=== PATIENT | female | born 1960 | race Caucasian/White ===

== ENCOUNTER 2022-12-04 11:24 | Outpatient (CLI) | payer OTHER, SELFPAY ==
[2022-12-04 17:31] LABS: Alanine Aminotransferase 29 U/L (6-35); Albumin Level 4.6 g/dL (3.5-5.1); Alkaline Phosphatase 77 U/L (38-126); Anion Gap 6 mmol/L (8-16); Aspartate Amino Transferase 46 U/L (14-36); Bilirubin,Total 0.5 mg/dL (0.2-1.3); Blood Urea Nitrogen 14 mg/dL (7-17); Calcium 9.2 mg/dL (8.4-10.2); Carbon Dioxide 28 mmol/L (22-30); Chloride 104 mmol/L (98-107); Cholesterol 246 mg/dL (0-200); Estimated Glomerular Filt Rate > 60; Glucose 137 mg/dL (65-110); HDL Direct 36 mg/dL; Potassium 4.4 mmol/L (3.4-5.0); Sodium 138 mmol/L (137-145); Triglycerides 216 mg/dL (<150)
[2022-12-04 17:42] LABS: LDL Cholesterol Direct 158 mg/dL
[2022-12-04 17:51] LABS: Basophils Percent Auto 0.9 % (0.2-1.2); Eosinophils Absolute Auto 0.1 K/mm3 (0-0.3); Eosinophils Percent Auto 2.2 % (0-4.4); Hematocrit 43.1 % (37.0-47.0); Hemoglobin 13.5 g/dL (12.0-15.0); Immature Granulocyte Absolute 0.02 K/mm3 (0.00-0.031); Immature Granulocyte Percent A 0.4 % (0-0.5); Lymphocytes Absolute Auto 1.28 K/mm3 (0.9-3.2); Lymphocytes Percent Auto 27.9 % (18.3-44.2); Mean Corpuscular HGB Conc 31.3 g/dl (32-36); Mean Corpuscular Hemoglobin 27.2 pg (26-34); Mean Corpuscular Volume 86.7 fl (80-100); Mean Platelet Volume 11.1 fl (7.4-10.4); Monocytes Absolute Auto 0.4 K/mm3 (0.1-0.6); Monocytes Percent Auto 8.1 % (2.6-8.5); Neutrophils Absolute Auto 2.8 K/mm3 (1.3-6.7); Neutrophils Percent Auto 60.5 % (45.5-73.1); Platelet Count Result 222 k/mm3 (150-375); Red Blood Count 4.97 M/mm3 (4.2-5.4); Red Cell Distribution Width 15.6 % (11.5-14.5); White Blood Count 4.6 K/mm3 (4.5-10.0)
[2022-12-04 18:01] LABS: Thyroid Stimulating Hormone 0.891 uIU/mL (0.465-4.680)
[2022-12-04 18:12] LABS: Free T4 Free Thyroxine 1.03 ng/mL (0.78-2.19)
[2022-12-04 18:15] LABS: Creatinine Urine 167.1 mg/dL; Hemoglobin A1C 6.3 % (<5.7)
[2022-12-04 18:19] LABS: MALB Creatinine Ratio 6.3 mg/g (0-30); Microalbumin Urine Random 10.6 mg/L (0-16.7)
== END 2022-12-04 11:25 | disposition home or self-care (01) ==
LOC: ANHWCLAB 11:31
PROVIDERS: PCP Nurse Practitioner Adult Health; Visit Provider Nurse Practitioner Adult Health
DX: E03.9 Hypothyroidism, unspecified (principal); E78.5 Hyperlipidemia, unspecified; E11.9 Type 2 diabetes mellitus without complications; E66.01 Morbid (severe) obesity due to excess calories; I10 Essential (primary) hypertension; R80.9 Proteinuria, unspecified
CPT/HCPCS: 36415; 80053; 80061; 82043; 83036; 84439; 84443; 85025

== ENCOUNTER 2023-02-22 08:57 | Emergency (ER) | payer OTHER, SELFPAY ==
--- NOTE | ~2023-02-22 | XR_ITS ---
Clinical Indication: Arrhythmia PA and lateral views of the chest: Comparison: None Findings: Questionable 13 mm pulmonary nodule adjacent to the left heart border at the left lung base . Right lung clear. Cardiomediastinal silhouette is within normal limits. Bones and soft tissues are unremarkable. Impression: Questionable 13 mm left basilar pulmonary nodule. CT scan recommended to confirm or exclude. Reviewed, dictated and finalized at location M. L SELECTOR Impression: Questionable 13 mm left basilar pulmonary nodule. CT scan recommended to confir m or exclude.
--- NOTE | 2023-02-22 08:58 | ECG_ITS ---
Measurements Intervals [place] Rate: 92 P: 37 MO: 179 QRS: 3 QRSD: 81 T: 49 QT: 347 QTc: 431 Interpretive Statements SINUS RHYTHM MODERATE VOLTAGE CRITERIA FOR LVH, CONSIDER NORMAL VARIANT [MEETS CRITERIA IN ONE OF: R(aVL), S(V1), R(V5), R(V5/V6)+S(V1)] BORDERLINE ECG NO PREVIOUS ECG AVAILABLE FOR COMPARISON Electronically Signed On 02-22-2023 14:09:38 SHIPFITTER HELPER by Jose L Arreguin M.D.
[2023-02-22 09:03] VITALS: BP 148/98; PULSE 90; RESP 20; TEMP 36.9; O2SAT 96
[2023-02-22 09:07] VITALS: PULSE 92
[2023-02-22] MEDS: ASPIRIN 81 MG CHEWABLE TABLET 324 MG PO (09:13)
[2023-02-22 09:15] VITALS: BP 156/95; PULSE 91; RESP 18; O2SAT 96
[2023-02-22 09:22] LABS: Basophils Absolute Auto 0.1 K/mm3 (0.0-0.1); Basophils Percent Auto 1.1 % (0.2-1.2); Eosinophils Absolute Auto 0.1 K/mm3 (0-0.3); Eosinophils Percent Auto 3.2 % (0-4.4); Hematocrit 41.5 % (37.0-47.0); Hemoglobin 13.4 g/dL (12.0-15.0); Immature Granulocyte Absolute 0.01 K/mm3 (0.00-0.031); Immature Granulocyte Percent A 0.2 % (0-0.5); Lymphocytes Absolute Auto 1.26 K/mm3 (0.9-3.2); Lymphocytes Percent Auto 28.9 % (18.3-44.2); Mean Corpuscular HGB Conc 32.3 g/dl (32-36); Mean Corpuscular Hemoglobin 28.2 pg (26-34); Mean Corpuscular Volume 87.4 fl (80-100); Mean Platelet Volume 11.2 fl (7.4-10.4); Monocytes Absolute Auto 0.3 K/mm3 (0.1-0.6); Monocytes Percent Auto 6.9 % (2.6-8.5); Neutrophils Absolute Auto 2.6 K/mm3 (1.3-6.7); Neutrophils Percent Auto 59.7 % (45.5-73.1); Platelet Count Result 220 k/mm3 (150-375); Red Blood Count 4.75 M/mm3 (4.2-5.4); Red Cell Distribution Width 13.2 % (11.5-14.5); White Blood Count 4.4 K/mm3 (4.5-10.0)
[2023-02-22 09:32] LABS: Prothrombin Time 13.2 Seconds (11.1-14.7)
[2023-02-22 09:33] LABS: Partial Thromboplastin Time 26.8 SECONDS (22.3-36.8)
[2023-02-22 09:36] LABS: Alanine Aminotransferase 27 U/L (6-35); Albumin Level 4.3 g/dL (3.5-5.1); Alkaline Phosphatase 64 U/L (38-126); Anion Gap 7 mmol/L (8-16); Aspartate Amino Transferase 35 U/L (14-36); Bilirubin,Total 0.6 mg/dL (0.2-1.3); Blood Urea Nitrogen 11 mg/dL (7-17); Carbon Dioxide 23 mmol/L (22-30); Chloride 109 mmol/L (98-107); Estimated CRCL calculation 102 ml/min; Estimated Glomerular Filt Rate > 60; Glucose 143 mg/dL (65-110); Lipase 139 U/L (23-300); Potassium 4.3 mmol/L (3.4-5.0); Sodium 139 mmol/L (137-145)
--- NOTE | 2023-02-22 09:44 | ED.GENADULT ---
HPI - General Adult General Chief complaint: Arrhythmia/Palpitations Stated complaint: palpitations Time Seen by Provider: 02/22/23 09:03 Source: patient Mode of arrival: ambulatory Limitations: no limitations History of Present Illness HPI narrative: this is a 62-year-old female With PMH of HTN, hypothyroidism who presents to the ED with chief complaint of palpitations beginning this morning while at mass. Reports she was in a seated position and started to feel an irregular heartbeat. Reports that the her P became regular and started to become harder and faster. At that time she started to feel a little lightheaded but denies syncope. She also reports that her hands started to become a tingling. Denies vertigo. Denies any chest pain or associated shortness of breath. Denies vomiting, diaphoresis. Denies any recent illness, fevers, chills. She states that when she wrapped here, everything started to resolve and she is currently completely asymptomatic. Related Data Allergies Allergy/AdvReac Type Severity Reaction Status Date / Time No Known Allergies Allergy Verified 02/22/23 09:07 Review of Systems Review of Systems: All systems as dictated in HPI Exam Narrative: GENERAL: Well-appearing, well-nourished, and in no acute distress. HEAD: Normocephalic, atraumatic. EYES: PERRLA and EOMI. ENT: Nares clear, no rhinorrhea or epistaxis. Mucous membranes moist. Oropharynx without tonsillar hypertrophy exudate or other lesions. NECK: Supple. No adenopathy or masses. CHEST: No respiratory distress. Clear to auscultation. No wheezes rales or rhonchi HEART: Regular rate and rhythm. No murmur heard. Normal peripheral pulses. ABDOMEN: Soft, nontender, nondistended, normal active bowel sounds. MSK: Normal range of motion. No edema. SKIN: Warm, dry, no rash. NEURO: Alert and oriented x3. No focal deficits. PSYCH: Normal mood and affect. Course Course Emergency Course: re-evaluation 1047: No further symptomatic episodes. has continued to be asymptomatic during her entire visit. Feels comfortable going home and follow-up with PCP. Vital Signs Vital signs: Vital Signs Temperature 98.5 F 02/22/23 09:03 Pulse Rate 90 02/22/23 09:03 Respiratory Rate 20 02/22/23 09:03 Blood Pressure 148/98 H 02/22/23 09:03 Pulse Oximetry 96 02/22/23 09:03 Oxygen Delivery Room Air 02/22/23 09:03 Temperature 98.5 F 02/22/23 09:03 Pulse Rate 86 02/22/23 09:45 Respiratory Rate 18 02/22/23 09:45 Blood Pressure 140/93 H 02/22/23 09:45 Pulse Oximetry 97 02/22/23 09:45 Oxygen Delivery Room Air 02/22/23 09:03 Medical Decision Making MDM Narrative Medical decision making narrative: This is a 62 female who presents to the ED with chief complaint of palpitations beginning this morning. no chest pain or respiratory distress. Vitals are normal. Exam is benign. Lab work is grossly unremarkable. Negative initial troponin. EKG shows sinus rhythm. Chest x-ray shows no acute abnormalities, however does show a 13 mm nodule in the left lung base. The patient has remained completely asymptomatic since arrival in the ER. She feels ready to go home. I discussed the findings of the chest x-ray with her. No dysrhythmias seen on the monitor. We also discussed that she may need a Holter monitor, instructed follow-up with PCP. She feels comfortable with this plan. Pt will be discharged in stable condition. Return precautions given and supportive measures discussed. Pt is understanding and agreeable with plan for discharge and follow-up with PCP. Differential Diagnosis Differential Diagnosis: atrial fibrillation, arrhythmia, dysrhythmia, ACS, anxiety, orthostatic hypotension Vital Signs Vital Signs: Vital Signs Temperature 98.5 F 02/22/23 09:03 Pulse Rate 90 02/22/23 09:03 Respiratory Rate 20 02/22/23 09:03 Blood Pressure 148/98 H 02/22/23 09:03 Pulse Oximetry 96
[2023-02-22 09:45] VITALS: BP 140/93; PULSE 86; RESP 18; O2SAT 97
[2023-02-22 09:54] LABS: Troponin I < 0.012 ng/mL (0.000-0.034)
[2023-02-22 10:24] LABS: Appearance Urine Clear (Clear); Bacteria Urine None Seen /hpf; Bilirubin Urine Negative (Negative); Blood Urine Negative (Negative); Color Urine Yellow (Yellow); Glucose Urine UA Negative (Negative); Ketones Urine Negative (Negative); Leukocyte Esterase Ur 1+ LEU/UL (Negative); Need Manual Microscopic Reviewed; Nitrate Urine Negative (Negative); Non Pathogenic Casts 0-2; Protein Urine Negative (Negative); RBC Urine 0-2 /hpf (0-2); Specific Grav Ur 1.013 (1.001-1.035); Squamous Epithelial Cell Urine None seen /hpf (Few); Urobilinogen Urine 0.2 mg/dL (<2.0); WBC Urine 0-5 /hpf
[2023-02-22 10:27] LABS: Add Urine Microscopic? YES
== END 2023-02-22 11:04 | disposition home or self-care (01) ==
PROVIDERS: Emergency Medicine; Emergency Provider Physician Assistant; PCP Family Medicine
DX: R00.2 Palpitations (principal); I10 Essential (primary) hypertension; E03.9 Hypothyroidism, unspecified; R91.1 Solitary pulmonary nodule
CPT/HCPCS: 36415; 71046; 80053; 81001; 83690; 84484; 85025; 85610; 85730; 93005; 99284; A9270

== ENCOUNTER → 2023-03-08 11:01 | Outpatient (CLI) | payer OTHER, SELFPAY ==
--- NOTE | ~2023-03-08 | CT_ITS ---
EXAMINATION: CT diagnostic chest w con DATE: 03/08/2023 11:35 INDICATION: Lung nodule TECHNIQUE: Transaxial computed tomographic images of the chest were obtained after the administration of 75 cc of Omnipaque 350 intravenous contrast. The dose-length product (DLP) was 632.29 mGy-cm. Ite rative reconstruction was used. COMPARISON: Chest radiograph, 02/22/2023 FINDINGS: The lungs are free of acute opacities. No pleural effusion or pneumothorax. No suspicious C T correlate is identified for the finding in question on the comparison chest radiograph. No patholog ically enlarged thoracic lymph nodes are identified. The heart size is normal. There is a partially i ralph 7 cm cyst of the left kidney. There is mild thoracic spondylosis. IMPRESSION: 1. No suspicious CT correlate for the chest radiographic finding in question. No acute cardiopulmonar y abnormality. Reviewed, dictated and finalized at location B. AVER SET UP OPERATOR IMPRESSION: 1. No suspicious CT correlate for the chest radiographic finding in question. N o acute cardiopulmonary abnormality.
[2023-03-08 11:26] LABS: Estimated Glomerular Filt Rate > 60
== END ==
PROVIDERS: PCP Nurse Practitioner Adult Health; Visit Provider Nurse Practitioner Adult Health
DX: R91.1 Solitary pulmonary nodule (principal)
CPT/HCPCS: 71260; Q9967

== ENCOUNTER 2023-06-04 09:17 | Outpatient (CLI) | payer OTHER, SELFPAY ==
[2023-06-04 12:37] LABS: Basophils Absolute Auto 0.1 K/mm3 (0.0-0.1); Eosinophils Absolute Auto 0.2 K/mm3 (0-0.3); Eosinophils Percent Auto 2.9 % (0-4.4); Hematocrit 38.5 % (37.0-47.0); Hemoglobin 11.8 g/dL (12.0-15.0); Immature Granulocyte Absolute 0.02 K/mm3 (0.00-0.031); Immature Granulocyte Percent A 0.4 % (0-0.5); Lymphocytes Absolute Auto 1.38 K/mm3 (0.9-3.2); Lymphocytes Percent Auto 26.3 % (18.3-44.2); Mean Corpuscular HGB Conc 30.6 g/dl (32-36); Mean Corpuscular Hemoglobin 27.1 pg (26-34); Mean Corpuscular Volume 88.3 fl (80-100); Mean Platelet Volume 11.5 fl (7.4-10.4); Monocytes Absolute Auto 0.4 K/mm3 (0.1-0.6); Monocytes Percent Auto 6.7 % (2.6-8.5); Neutrophils Absolute Auto 3.3 K/mm3 (1.3-6.7); Neutrophils Percent Auto 62.7 % (45.5-73.1); Platelet Count Result 228 k/mm3 (150-375); Red Blood Count 4.36 M/mm3 (4.2-5.4); Red Cell Distribution Width 13.1 % (11.5-14.5); White Blood Count 5.3 K/mm3 (4.5-10.0)
[2023-06-04 12:40] LABS: Alanine Aminotransferase 22 U/L (6-35); Albumin Level 4.1 g/dL (3.5-5.1); Alkaline Phosphatase 68 U/L (38-126); Anion Gap 6 mmol/L (4-12); Aspartate Amino Transferase 34 U/L (14-36); Bilirubin,Total 0.4 mg/dL (0.2-1.3); Blood Urea Nitrogen 11 mg/dL (7-17); Calcium 9.5 mg/dL (8.4-10.2); Carbon Dioxide 27 mmol/L (22-30); Chloride 107 mmol/L (98-107); Cholesterol 182 mg/dL (0-200); Estimated Glomerular Filt Rate > 60; Glucose 123 mg/dL (65-110); HDL Direct 37 mg/dL; Potassium 4.1 mmol/L (3.4-5.0); Sodium 140 mmol/L (137-145); Triglycerides 123 mg/dL (<150)
[2023-06-04 12:51] LABS: LDL Cholesterol Direct 124 mg/dL
[2023-06-04 13:03] LABS: Free T4 Free Thyroxine 0.84 ng/mL (0.78-2.19)
[2023-06-04 13:11] LABS: Total Triiodothyronine (T3) 0.97 NG/ML (0.97-1.69)
[2023-06-04 13:15] LABS: Hemoglobin A1C 6.1 % (<5.7)
== END 2023-06-04 09:18 | disposition home or self-care (01) ==
PROVIDERS: PCP Nurse Practitioner Adult Health; Visit Provider Registered Nurse
DX: E11.9 Type 2 diabetes mellitus without complications (principal); E03.9 Hypothyroidism, unspecified; I10 Essential (primary) hypertension
CPT/HCPCS: 36415; 80053; 80061; 83036; 84439; 84443; 84480; 85025

== ENCOUNTER 2023-07-17 11:43 | Emergency (ER) | payer OTHER, SELFPAY ==
--- NOTE | ~2023-07-17 | XR_ITS ---
EXAMINATION: XR finger 4th LT min 2V DATE: 07/17/2023 12:08 INDICATION: Left hand fourth digit injury. TECHNIQUE: 3 views of left hand fourth digit were obtained. COMPARISON: None. FINDINGS: Bone alignment is normal. No fracture. There is mild osteoarthritis of fourth proximal and distal interphalangeal joints. IMPRESSION: 1. No fracture. Reviewed, dictated and finalized at location A. IMPRESSION: 1. No fracture.
[2023-07-17 11:44] VITALS: BP 161/94; PULSE 89; RESP 16; TEMP 36.6; O2SAT 100
--- NOTE | 2023-07-17 11:58 | ED.UPPEXIN ---
HPI - Extremity Injury (Upper) General Chief Complaint: Extremity Injury, Upper Stated Complaint: L 4th digit pain/injury Time Seen by Provider: 07/17/23 11:58 History of Present Illness HPI narrative: 8-year-old female presents the emergency room for evaluation of a finger injury that occurred just prior to arrival. Patient states she was moving concrete, when a brick crushed on her ring finger on her left hand. Related Data Home Medications Medication Instructions Recorded Confirmed levothyroxine PO DAILY 01/17/23 loratadine 10 mg tablet (Claritin) 10 mg PO DAILY 01/17/23 losartan PO DAILY 01/17/23 naproxen sodium 220 mg tablet 220 mg PO BID PRN 01/17/23 (Aleve) venlafaxine 225 mg tablet,extended 225 mg PO DAILY 01/17/23 release 24 hr Allergies Allergy/AdvReac Type Severity Reaction Status Date / Time No Known Allergies Allergy Unverified 03/18/23 10:03 Review of Systems Review of Systems: Review of systems unremarkable except for noted in the HPI PMFSH Past Medical History Medical History BMI greater than 40 Left knee DJD Uterine prolapse Surgical History Surgical History H/O dilation and curettage 1988, 1996 History of section (~2000) History of tonsillectomy (~1968) Hx of cholecystectomy (~1987) Family History Family History Unknown Asthma Hypertension Depression Lung disease Heart disease Neuropathy Kidney disorder Diabetes mellitus Arthritis Hyperlipidemia Social History Social History Smoking status: Never smoker Exam Narrative: GENERAL: Well-appearing, well-nourished, no physical limitations, and in no acute distress. HEAD: Normocephalic, atraumatic. EYES: Conjunctivae normal, PERRLA and EOMI. CHEST: Clear to auscultation. No respiratory distress. No wheezes rales or rhonchi. HEART: Regular rate and rhythm. No murmur heard. Normal peripheral pulses. EXTREMITIES: left hand: +TTP to distal phalanx. No bony abnormality. No ecchymosis. Neurovascular is intact distally SKIN: Warm, dry, no rash. No noted wounds NEURO: No focal deficits. Alert and oriented x3. MAEW. CN's II-XI intact bilaterally, normal gait PSYCH: Cooperative. Normal mood and affect. Course Vital Signs Vital signs: Vital Signs Temperature 36.6 C 07/17/23 11:44 Pulse Rate 89 07/17/23 11:44 Respiratory Rate 16 07/17/23 11:44 Blood Pressure 161/94 H 07/17/23 11:44 Pulse Oximetry 100 07/17/23 11:44 Oxygen Delivery Room Air 07/17/23 11:44 Temperature 36.6 C 07/17/23 11:44 Pulse Rate 89 07/17/23 11:44 Respiratory Rate 16 07/17/23 11:44 Blood Pressure 161/94 H 07/17/23 11:44 Pulse Oximetry 100 07/17/23 11:44 Oxygen Delivery Room Air 07/17/23 11:44 Discharge Plan Discharge Clinical Impression: Contusion of finger of left hand Patient Disposition: Home, Self-Care Condition: Stable Instructions: Antibiotic Form Prescriptions: No Action venlafaxine 225 mg tablet extended release 24hr 225 mg PO DAILY naproxen sodium [Aleve] 220 mg tablet 220 mg PO BID PRN loratadine [Claritin] 10 mg tablet 10 mg PO DAILY losartan PO DAILY levothyroxine PO DAILY Follow-up/Referrals: Mariano,Jose L Cooper APRN [Non-Staff] - Time of Disposition: 13:17
== END 2023-07-17 13:28 | disposition home or self-care (01) ==
PROVIDERS: Emergency Provider Nurse Practitioner Family
DX: S60.042A Contusion of left ring finger without damage to nail, initial encounter (principal); M17.12 Unilateral primary osteoarthritis, left knee; Z90.49 Acquired absence of other specified parts of digestive tract; W23.0XXA Caught, crushed, jammed, or pinched between moving objects, initial encounter
CPT/HCPCS: 73140; 99283

== ENCOUNTER 2023-10-08 16:01 | Outpatient (CLI) | payer OTHER, SELFPAY ==
--- NOTE | ~2023-10-08 | XR_ITS ---
EXAMINATION: XR lumbar spine 2-3V, XR sacrum coccyx min 2V DATE: 10/08/2023 16:43 INDICATION: Back pain TECHNIQUE: 1. Anteroposterior and lateral views of the lumbar spine, and cone-down lateral view of the lumbosacr al junction were obtained. 2. 3 views of the sacrum and coccyx were obtained. COMPARISON: None. FINDINGS: Lumbar spine: 4 degrees lumbar dextrocurvature. Sagittal alignment is normal. Vertebral body heights are normal. Mo derate disc height loss at L5-S1. Bilateral lumbar facet osteoarthritis, mild at the upper lumbar spi ne progressing to severe at the lower lumbar spine. Sacrum and coccyx: Normal alignment of the pelvis. Sacral arches are intact. No fractures identified. Mild bilateral hip and sacroiliac osteoarthritis. Mild osteitis pubis. 1.5 cm sclerotic lesion at the left anterior dino ac spine which could represent a large bone island although differential includes metastatic disease. IMPRESSION: 1. Lower lumbar predominant spondylosis with moderate to severe lower lumbar facet osteoarthritis and moderate disc height loss at L5-S1. 2. Mild bilateral hip and sacroiliac osteoarthritis. No acute osseous abnormality. 3. 1.5 cm sclerotic lesion at the left anterior iliac spine with differential including bone island o r metastatic disease in the appropriate clinical setting. Consider bone scan for further evaluation p articularly if there is known history of prior malignancy. Reviewed, dictated and finalized at location A. IMPRESSION: 1. Lower lumbar predominant spondylosis with moderate to severe lower lumbar fa cet osteoarthritis and moderate disc height loss at L5-S1. 2. Mild bilateral hip and sacroiliac osteoarthritis. No acute osseous abnormali ty. 3. 1.5 cm sclerotic lesion at the left anterior iliac spine with differential i ncluding bone island or metastatic disease in the appropriate clinical setting. Consider bone scan for further evaluation particularly if there is known histo ry of prior malignancy.
== END 2023-10-08 16:02 | disposition home or self-care (01) ==
PROVIDERS: PCP Family Medicine; Visit Provider Registered Nurse
DX: M47.896 Other spondylosis, lumbar region (principal); M16.0 Bilateral primary osteoarthritis of hip; M53.3 Sacrococcygeal disorders, not elsewhere classified
CPT/HCPCS: 72100; 72220

== ENCOUNTER 2023-10-14 14:09 | Emergency (ER) | payer OTHER, SELFPAY ==
[2023-10-14 14:17] VITALS: BP 131/58; PULSE 99; RESP 16; TEMP 37; O2SAT 97
[2023-10-14] MEDS: DACRIOSE EYE IRRIGATION 118 ML BOTTLE 10 ML RIGHT EYE (14:34)
[2023-10-14] MEDS: FLUORESCEIN SOD 1 MG/STRIP RIGHT EYE (14:34)
[2023-10-14] MEDS: TETRACAINE HCL 0.5% OPHTH SOLN 4 ML BTL 1 DROP RIGHT EYE (14:34)
--- NOTE | 2023-10-14 14:47 | ED.EYEPROB ---
HPI - Eye Problem General Chief complaint: Eye Problems Stated complaint: right eye irritated Time Seen by Provider: 10/14/23 14:32 Source: patient, family () and RN notes reviewed Mode of arrival: ambulatory Limitations: no limitations History of Present Illness HPI Narrative: Patient presents today complaining right eye irritation. She was gardening outside today and believes she got some dirt in her eye around 10:00 a.m. today. She does report some blurred vision as well. Wears glasses. She used some [id number] eyedrops with only mild relief. States she could not get an eye doctor appointment until tomorrow. Related Data Home Medications Medication Instructions Recorded Confirmed azelastine 137 mcg (0.1 %) nasal 137 mcg intranasal DIRECTED 10/14/23 10/14/23 spray levothyroxine 75 mcg tablet 75 mcg DIRECTED 10/14/23 10/14/23 losartan 50 mg tablet 50 mg DIRECTED 10/14/23 10/14/23 pregabalin 100 mg capsule 100 mg PO DIRECTED 10/14/23 10/14/23 venlafaxine 150 mg 150 mg PO DIRECTED 10/14/23 10/14/23 capsule,extended release 24 hr venlafaxine 75 mg capsule,extended 75 mg PO DIRECTED 10/14/23 10/14/23 release 24 hr Allergies Allergy/AdvReac Type Severity Reaction Status Date / Time No Known Allergies Allergy Unverified 10/10/23 07:46 Review of Systems Review of Systems: CONSTITUTIONAL: Denies body aches, fever, chills, or sweats. EYES: Denies visual changes, redness, or discharge.+ right eye irritation in blurriness ENT: Denies rhinorrhea, congestion, sore throat, or otalgia. CARDIOVASCULAR: Denies chest pain, palpitations, or edema. RESPIRATORY: Denies cough or dyspnea. GASTROINTESTINAL: Denies abdominal pain, nausea, vomiting, or diarrhea. GENITOURINARY: Denies dysuria or hematuria. SKIN: Denies rash, itching, or wounds. MUSCULOSKELETAL: Denies back pain, joint pain, or myalgia. NEUROLOGIC: Denies headache, numbness, tingling, or weakness. PSYCH: Denies depression or anxiety. [facility] Past Medical History Medical History BMI greater than 40 Left knee DJD Uterine prolapse Surgical History Surgical History H/O dilation and curettage 1988, 1996 History of section (~2000) History of tonsillectomy (~1968) Hx of cholecystectomy (~1987) Family History Family History Unknown Asthma Hypertension Depression Lung disease Heart disease Neuropathy Kidney disorder Diabetes mellitus Arthritis Hyperlipidemia Social History Social History Smoking status: Never smoker Comments At time of signature, I have reviewed and agree with nursing past medical, surgical, social and family history unless otherwise noted. Please see nursing chart for further information. There is no relevant family history pertinent to the presenting complaint Exam Narrative: GENERAL: Well-appearing, well-nourished, and in no acute distress. HEAD: Normocephalic, atraumatic. EYES: EOMI. PERRL. Left eye normal. Right eye: 2 corneal abrasions noted with fluorescein uptake. See procedure note ENT: Mucous membranes pink and moist. NECK: Normal AROM. CHEST: No respiratory distress. EXTREMITIES: Normal range of motion. No edema. SKIN: Warm, dry, no rash. Capillary refill normal. Normal skin turgor. NEURO: No focal deficits. Alert and oriented x3. Gait steady. PSYCH: Normal affect. No signs of depression or anxiety. Course Course Level of Care: Express Care Visit Vital Signs Vital signs: Vital Signs Temperature 98.6 F 10/14/23 14:17 Pulse Rate 99 10/14/23 14:17 Respiratory Rate 16 10/14/23 14:17 Blood Pressure 131/58 L 10/14/23 14:17 Pulse Oximetry 97 10/14/23 14:17 Oxygen Delivery Room Air
== END 2023-10-14 15:05 | disposition home or self-care (01) ==
PROVIDERS: Emergency Provider Nurse Practitioner
DX: S05.01XA Injury of conjunctiva and corneal abrasion without foreign body, right eye, initial encounter (principal); X58.XXXA Exposure to other specified factors, initial encounter; M17.12 Unilateral primary osteoarthritis, left knee
CPT/HCPCS: 99213; A9270; G0463

== ENCOUNTER 2023-10-22 12:41 | Outpatient (CLI) | payer OTHER, SELFPAY ==
--- NOTE | ~2023-10-22 | CT_ITS ---
EXAMINATION: CT abdomen pelvis wo con DATE: 10/22/2023 13:23 INDICATION: Hip pain. TECHNIQUE: Computed tomography (CT) of the abdomen and pelvis was performed without intravenous contr ast. Automated exposure control and iterative reconstruction technique were employed. The dose-length product was 1523.19 mGy-cm. COMPARISON: None. FINDINGS: The visualized portions of the lung bases demonstrate minimal atelectasis. No pleural effus ion. The heart size is normal. No pericardial effusion. The liver, spleen, and pancreas are normal. T he gallbladder is absent. The adrenal glands and right kidney are normal. There is a 7.2 cm cyst in l eft kidney. There is an umbilical hernia containing fat. There are no dilated loops of bowel. The dominic endix is normal. There are no pathologically enlarged lymph nodes. There is no free intraperitoneal f luid. There is severe lower lumbar spondylosis. There is mild osteoarthritis of the hips. There are b enign bone islands in left ilium. IMPRESSION: 1. Mild osteoarthritis of the hips. 2. Umbilical hernia containing fat. Reviewed, dictated and finalized at location A.
== END 2023-10-22 12:42 | disposition home or self-care (01) ==
LOC: ANHIMG 12:48
PROVIDERS: PCP Registered Nurse; Visit Provider Registered Nurse
DX: M16.0 Bilateral primary osteoarthritis of hip (principal); K44.9 Diaphragmatic hernia without obstruction or gangrene
CPT/HCPCS: 74176

== ENCOUNTER 2024-02-03 09:47 | Outpatient (CLI) | payer OTHER, SELFPAY ==
[2024-02-03 10:12] LABS: Basophils Absolute Auto 0.1 K/mm3 (0.0-0.1); Eosinophils Absolute Auto 0.2 K/mm3 (0-0.3); Eosinophils Percent Auto 4.6 % (0-4.4); Hematocrit 42.2 % (37.0-47.0); Hemoglobin 13.5 g/dL (12.0-15.0); Immature Granulocyte Absolute 0.02 K/mm3 (0.00-0.031); Immature Granulocyte Percent A 0.4 % (0-0.5); Lymphocytes Absolute Auto 1.25 K/mm3 (0.9-3.2); Lymphocytes Percent Auto 25.3 % (18.3-44.2); Mean Corpuscular Hemoglobin 27.8 pg (26-34); Mean Platelet Volume 10.1 fl (7.4-10.4); Monocytes Absolute Auto 0.3 K/mm3 (0.1-0.6); Monocytes Percent Auto 5.7 % (2.6-8.5); Neutrophils Absolute Auto 3.1 K/mm3 (1.3-6.7); Platelet Count Result 247 k/mm3 (150-375); Red Blood Count 4.85 M/mm3 (4.2-5.4); Red Cell Distribution Width 14.4 % (11.5-14.5)
[2024-02-03 10:26] LABS: Alanine Aminotransferase 16 U/L (6-35); Albumin Level 4.3 g/dL (3.5-5.1); Alkaline Phosphatase 120 U/L (38-126); Anion Gap 6 mmol/L (4-12); Aspartate Amino Transferase 25 U/L (14-36); Bilirubin,Total 0.5 mg/dL (0.2-1.3); Blood Urea Nitrogen 10 mg/dL (7-17); Calcium 9.2 mg/dL (8.4-10.2); Carbon Dioxide 30 mmol/L (22-30); Chloride 106 mmol/L (98-107); Cholesterol 211 mg/dL (0-200); Estimated Glomerular Filt Rate > 60; Glucose 145 mg/dL (65-110); HDL Direct 36 mg/dL; Potassium 4.2 mmol/L (3.4-5.0); Sodium 142 mmol/L (137-145); Triglycerides 214 mg/dL (<150)
[2024-02-03 10:37] LABS: LDL Cholesterol Direct 136 mg/dL
[2024-02-03 10:40] LABS: Creatinine Urine 222.3 mg/dL
[2024-02-03 10:41] LABS: MALB Creatinine Ratio 15.7 mg/g (0-30); Microalbumin Urine Random 34.9 mg/L (0-16.7)
[2024-02-03 10:55] LABS: Thyroid Stimulating Hormone 0.568 uIU/mL (0.465-4.680); Total Triiodothyronine (T3) 1.03 NG/ML (0.97-1.69)
[2024-02-03 10:57] LABS: Free T4 Free Thyroxine 1.11 ng/mL (0.78-2.19)
[2024-02-03 11:30] LABS: Hepatitis C Virus Antibody Negative (Negative)
== END 2024-02-03 09:48 | disposition home or self-care (01) ==
PROVIDERS: PCP Registered Nurse; Visit Provider Registered Nurse
DX: Z11.59 Encounter for screening for other viral diseases (principal); E11.9 Type 2 diabetes mellitus without complications; E78.5 Hyperlipidemia, unspecified; E03.9 Hypothyroidism, unspecified
CPT/HCPCS: 36415; 80053; 80061; 82043; 83036; 84439; 84443; 84480; 85025; 86803

== ENCOUNTER 2024-02-14 15:45 | Outpatient (CLI) | payer OTHER, SELFPAY ==
--- NOTE | ~2024-02-14 | MR_ITS ---
EXAMINATION: MR lumbar spine wo con DATE: 02/14/2024 16:25 INDICATION: Low back pain. TECHNIQUE: Magnetic resonance imaging (MRI) of the lumbar spine was performed without intravenous con trast. Sequences included sagittal T2-weighted FSE, sagittal T2-weighted FS FSE, sagittal T1-weighted FSE, and axial T2-weighted FSE. COMPARISON: Lumbar spine radiographs 10/08/2023 FINDINGS: There is 3 mm retrolisthesis of L5 on S1. There are hemangiomas in T11 and L1 vertebral bod ies. There is severely decreased disc height at L5-S1. The distal spinal cord signal intensity is nor mal. The conus medullaris is at L1. There is a 6.8 cm cyst in left kidney. The following disc levels are specifically discussed: L1-L2: There is a central protrusion. There is mild bilateral facet joint osteoarthritis. There is no neural foraminal stenosis. There is mild central canal stenosis. L2-L3: The disc does not extend beyond the endplate margin. There is severe bilateral facet joint ost eoarthritis. There is no neural foraminal stenosis. There is no central canal stenosis. L3-L4: The disc does not extend beyond the endplate margin. There is severe bilateral facet joint ost eoarthritis. There is no neural foraminal stenosis. There is no central canal stenosis. L4-L5: There is a left foraminal protrusion. There is severe bilateral facet joint osteoarthritis. Th ere is no neural foraminal stenosis. There is no central canal stenosis. L5-S1: The disc is bulging and has an annular fissure. There is severe bilateral facet joint osteoart hritis. There is mild bilateral neural foraminal stenosis. There is mild central canal stenosis. IMPRESSION: 1. Severe lower lumbar spondylosis. Reviewed, dictated and finalized at location A. WARE APPLICATIONS DESIGNER
--- NOTE | ~2024-02-14 | XR_ITS ---
XR hip RT min 2V 02/14/2024 16:31 Indication: Right hip pain Procedure: 2 views right hip Comparison: 09/09/2022 Findings: Mild osteoarthritis of the right hip. No fracture, subluxation or dislocation. There is ost eitis pubis. Surrounding osseous structures and soft tissues are unremarkable. Impression: 1: Mild osteoarthritis of the right hip. Reviewed, dictated and finalized at location B. OFFICER Impression: 1: Mild osteoarthritis of the right hip.
== END 2024-02-14 15:46 | disposition home or self-care (01) ==
PROVIDERS: PCP Registered Nurse
DX: M16.11 Unilateral primary osteoarthritis, right hip (principal); M47.896 Other spondylosis, lumbar region
CPT/HCPCS: 72148; 73502

== ENCOUNTER 2024-11-03 08:37 | Outpatient (CLI) | payer OTHER, SELFPAY ==
--- OUTSIDE RECORDS SUMMARY | 2023-08-24 16:30 | XMS_ITS ---
Author Organization [facility] [employer] ([address]) Address [address] [facility] [address] [place] [address] Care Team Providers Care Cabin Furnishings Installer Name Role Phone Jerrod Cameron MD Primary Care Provider Unavail able Alton Ramirez Unavailable [phone] ZZ-Migration, Provider Unavailable Unavailab REASON FOR VISIT [facility] Conversion Encounter Medications Medication SIG (Take, Route, Frequency, Duration) Notes Start Date End Date Status Losartan Potassium 50 MG 1 tab(s) orally once a day Active Effexor XR 75 MG 1 cap(s) orally 3x daily Active Aleve 220 MG 1 tab(s) orally ever y 12 hours Active Pregabalin 100 MG 1 cap(s) orally 2 times a day only takes once a day Active Levothyroxine Sodium 75 MCG 1 tab(s) orally once a day Active Fexofenadine HCl 180 MG 1 tab(s) orally Daily; Duration: 30 days Active Fluticasone Propionate 50 MCG/ACT 2 spray(s) in each nostril twice a day; Duration: 30 days Active Azelastine HCl 137 MCG/SPRAY 2 spray(s) intranasally 2 times a day; Duration: 90 days Active NASAL WASHES N/A DIRECTED INTRANASALLY NEEDED; Duration: 30 DAYS *Please review for potential replacement for e-prescription and drug interaction check* Active EpiPen 2-Scott 0.3 MG/0.3ML as directed intramuscularly once; Duration: 30 days Active Encounters Encounter Location Date Provider Diagnosis ERNESTINA Ni [address] [place] [address] [place] [address] 08/24/2023 Provider ZZ-Migration Allergic rhinitis due to pollen J30.1 and Bee allergy status Z91.030 Assessments Encounter Date Diagnosis (ICD Code) Assessment Notes Treatment Notes Treatment Clinical Notes Section Notes 08/24/2023 Allergic rhinitis due to pollen (ICD-10 - J30.1) 08/24/2023 Bee allergy status (ICD-10 - Z91.030) Plan Of Treatment Medication Medication Name Sig Start Date Stop Date Notes Fexofenadine HCl 180 MG 1 tab(s) orally Daily; Duration: 30 days Fluticasone Propionate 50 MCG/ACT 2 spray(s) in each nostril twice a day; Duration: 30 days Azelastine HCl 137 MCG/SPRAY 2 spray(s) intranasally 2 times a day; Duration: 90 days NASAL WASHES N/A DIRECTED INTRANAS ALLY NEEDED; Duration: 30 DAYS *Please review for potential replacement for e-prescription and drug interaction check* EpiPen 2-Scott 0.3 MG/0.3ML as directed intramuscularly once; Duration: 30 days Progress Notes * Minna ORTIZB: 3 (63 yo F)Acc No.[id number]:08/24/2023 Patient: Imelda CHOWDHURY Provider: Lexie Maharaj :1960 A ge:62 Y S ex:Female Date:08/24/2023 Address:[address] [place], [place] [id number] Pcp:Jerrod Cameron MD Subjective: * Chief Complaints: * 1 . [facility] Conversion Encounter. * Medical History: * Medications: T aking Effexor XR 75 MG Capsule Extended Release 24 Hour 1 cap(s) orally 3x daily , Taking Aleve 220 MG Tablet 1 tab(s) orally every 12 hours , Taking Pregabalin 100 MG Capsule 1 cap(s) orally 2 times a day , Notes to Pharmacist: only takes once a day, Taking Levothyroxine Sodium 75 MCG Tablet 1 tab(s) orally once a day , Taking Losartan Potassium 50 MG Tablet 1 tab(s) orally once a day , Taking Fexofenadine HCl 180 MG Tablet 1 tab(s) orally Daily , Taking Fluticasone Propionate 50 MCG/ACT Suspension 2 spray(s) in each nostril BID , Taking Azelastine HCl 137 MCG/SPRAY Solution 2 spray(s) intranasally 2 times a day , Taking EpiPen 2-Scott 0.3 MG/0.3ML Solution Auto-injector as directed intramuscularly once Objective: * Vitals: Assessment: * Assessment: 1. A llergic rhinitis due to pollen - J30.1 (Primary) 2 . B ee allergy status - Z91.030 Plan: * Treatment: 2. B ee allergy status Continue EpiPen 2-Scott Solution Auto-injector, 0.3 MG/0.3ML, as directed, intramuscularly, once, 30 days, 1, Refills 0. * Billing Information: * Visit Code: * Procedure Codes: * Electronic signature of Ros CHEN-Migration on 11/03/2024 at 08:46 AM CDT Sign off status: Pending * Provider: Lexie guillen Migration Date: 0 08/24/2023 Generated for Erica ybarra/Benson/Teresita on: 0 11/03/2024 08:46 AM CDT
--- NOTE | ~2024-11-03 | XR_ITS ---
EXAMINATION: XR chest 2V 11/03/2024 10:18 INDICATION: Cough PROCEDURE: 2 view chest COMPARISON: 02/22/2023 FINDINGS: The lungs are clear. The cardiomediastinal silhouette is within normal limits. There are no pleural effusions. There is no pneumothorax suspected. IMPRESSION: 1: NO ACUTE CARDIOPULMONARY DISEASE. Reviewed, dictated and finalized at location O.
--- NOTE | ~2024-11-03 | XR_ITS ---
EXAMINATION: XR wrist LT min 3V, 11/03/2024 10:10 CDT HISTORY: Cough and pain unspecified COMPARISON: No comparisons available. Findings: No acute fracture or malalignment. No significant degenerative changes. Soft tissues unremarkable. Impression: No acute fracture or malalignment. Reviewed, dictated and finalized at location A. Impression: No acute fracture or malalignment.
--- OUTSIDE RECORDS SUMMARY | 2024-11-03 08:46 | XMS_ITS | Patient Health Record ---
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 Name Role Phone Jerrod Cameron MD Primary Care Provider Unavail able Alton Ramirez Unavailable [phone] Allergies No Known Allergies Reason For Referral No Information Medications Medication SIG (Take, Route, Frequency, Duration) Notes Start Date End Date Status FEXOFENADINE 180 mg 1 tab(s) orally Daily; Duration: 30 day(s) 07/08/2023 Active FLUTICASONE NASAL 50 mcg/inh 2 spray(s) in each nostril BID; Duration: 30 day(s) 07/08/2023 Active AZELASTINE NASAL 137 mcg/inh 2 spray(s) intranasally 2 times a day; Duration: 90 days 07/08/2023 Active Losartan Potassium 50 MG 1 tab(s) orally once a day Active FEXOFENADINE 180 mg 1 tab(s) orally Daily; Duration: 30 days Active AZELASTINE NASAL 137 mcg/inh 2 spray(s) intranasally 2 times a day; Duration: 90 days Active FLUTICASONE NASAL 50 mcg/inh 2 spray(s) in each nostril twice a day; Duration: 30 days Active EPIPEN 2-SCOTT 0.3 mg as directed intramuscularly once; Duration: 30 days Active Fexofenadine HCl 180 MG 1 tab(s) orally Daily; Duration: 30 days Active Fluticasone Propionate 50 MCG/ACT 2 spray(s) in each nostril twice a day; Duration: 30 days Active Azelastine HCl 137 MCG/SPRAY 2 spray(s) intranasally 2 times a day; Duration: 90 days Active PREGABALIN 100 mg 1 cap(s) orally 2 times a day only takes once a day Active Effexor XR 75 MG 1 cap(s) orally 3x daily Active LEVOTHYROXINE 75 mcg (0.075 mg) 1 tab(s) orally once a day Active Aleve 220 MG 1 tab(s) orally ever y 12 hours Active LOSARTAN 50 mg 1 tab(s) orally once a day Active Pregabalin 100 MG 1 cap(s) orally 2 times a day only takes once a day Active Levothyroxine Sodium 75 MCG 1 tab(s) orally once a day Active NASAL WASHES N/A DIRECTED INTRANASALLY NEEDED; Duration: 30 DAYS *Please review for potential replacement for e-prescription and drug interaction check* Active EPIPEN 2-SCOTT 0.3 mg as directed intramuscularly once; Duration: 30 days 07/08/2023 Active EpiPen 2-Scott 0.3 MG/0.3ML as directed intramuscularly once; Duration: 30 days Active EFFEXOR XR 75 mg 1 cap(s) orally 3x daily Active ALEVE sodium 220 mg 1 tab(s) orally ever y 12 hours Active Immunizations Vaccine Route Administration Date Status Comme nts Allergy Immunotherapy Weekly Unknown 03/11/2021 Administered Portal [employer] on Social History Tobacco Use: Social History Observation Description Date Details (start date - stop date) Never Smoker NA - NA Tobacco Control (Standard) Question Answer Notes Tobacco use: Nonsmoker Problems Problem Type SNOMED Code ICD Code Onset Dates Problem Status W/U Status Risk Notes Problem Intolerance to lactose (finding) (304801830) Lactose intolerance, unspecified (E73.9) Active confirmed Problem Other chronic allergic conjunctivitis (H10.45) Active confirmed Problem Allergic rhinitis caused by pollen (disorder) (09051050) Allergic rhinitis due to pollen (J30.1) Active confirmed Problem Allergic rhinitis (15144296) Other allergic rhinitis (J30.89) Active confirmed Problem Idiopathic urticaria (77625674) Idiopathic urticaria (L50.1) Active confirmed Problem Allergy to bee venom (774370228) Bee allergy status (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 [address] [place] [phone] [id number] Robert Ortiz Spouse - patient is the spouse of the insured Medical (General) History Medical History History ICD Code Allergic rhinitis due to pollen J30.1 Other allergic rhinitis J30.89 Lactose intolerance, unspecified E73.9 Other chronic allergic conjunctivitis H1 0.45 Idiopathic urticaria L50.1 Chronic cough R05.3 Bee allergy status Z91.030 Surgical History Surgery Date(Month/Year) tonsilectomy 11/07/1968 gall baldder 03/11/1988 D and C 03/11/1988 prolapse repair 03/01/1996 D and C 03/11/1996 hysterectomy with cystaceal and rectocea l reapir 03/11/2004 recoceal repair 06/09/2014 bladder tumor removed 03/11/2014 finger tumor removed 03/11/2012 carpal tunnel release 2019 Hospitalization History Reason Date(Month/Year) psychaitric 06/09/2004
--- OUTSIDE RECORDS SUMMARY | 2024-11-03 08:46 | XMS_ITS | Continuity of Care Document ---
Author Name [facility] Organization [facility] Care Team Providers Care Manager Category Name Role Phone [facility] Unavailable Unavailable Problems Combined list of problems from Department of Defense and Veterans Affairs facilities. It does not include entries that were removed or entered in error. Problem Status Onset Date Problem Type Date of Resolution Comments Source OVARIAN CYST Active Condition DoD Observation For Suspected Condition Active Condition DoD CERVICALGIA Active Condition DoD Other Physical Therapy Active Condition DoD upper back pain (between shoulder blades) Active Condition DoD Family history of diabetes mellitus Inactive Condition DoD ROUTINE PELVIC EXAM Inactive Condition DoD RHINITIS Active Condition DoD CLOSED FRACTURE METACARPAL BONE(S) LEFT Active Condition Old fracture left 1st metacarpal. Spoke with Ortho at [facility] and recommend to refer to Occupational Therapy for evaluation at this time since the fracture is old. Hand splint was given. Pt has NSAID for use. DoD Blood Pressure Isolated Elevated Active Condition 5 day BP a nd F/u after that DoD visit for: postsurgical exam Inactive Condition S/P AMARILIS, A SC. Ovaries are still present. DoD visit for: issue repeat prescription Inactive Condition Pt requesting antibiotics. DoD visit for: screening exam Inactive Condition Pt mentioned abnormality [place] [facility]. See cxr report attached. No cardiopulm sxs. Chest CT ordered via [facility]. F/u after CT or sooner prn. DoD joint pain, localized in the hip Active Condition Nml gait. Suspect hip discomfort may be secondary to surgery. Given chronicity, will give trial of mobic. RTC in 2 wks of no improvement or sooner if pain worsens. Will get x-rays and refer to PT if no improvement. DoD Aftercare Following Surgery Of Genitourinary System Active Condition no evidence of wound infection at this time, she is s/p 7 days of antibiotic therapy. will d/c abx at this time and gave pt strict precautions to return as needed any skin changes to incision, foul drainage, fever, severe abd pain, any concern. DoD POST ABDOMINAL SURGERY Active Condition Discussed pt to Dr Morley transportation project manager FRAUD ANALYST at [facility] and she will evaluate pt today. Considering IV anbiotic as indicated. Pt instructed for lab draw prior to seeing FRAUD ANALYST doc. [facility] UTERINE PROLAPSE Active Condition DoD RECTOCELE Active Condition The risks, benefits, alternatives, and possible outcomes of planned procedures were discussed at length. Multiple questions were answered to patient's satisfaction. Patient gives consent to written and verbal consent to proceed with surgery.PLAN: 1. T [facility] CYSTOCELE Active Condition DoD visit for: administrative purpose Inactive Condition DoD VAGINAL ENTEROCELE Active Condition DoD DYSTHYMIC DISORDER (DEPRESSIVE NEUROSIS) Active Condition sx currently in remission with tx DoD SUPERFICIAL INJURY - NONVENOMOUS INSECT BITE OF THIGH Inactive Condition Adviced to finish Antibiotic. DoD Laboratory Studies Inactive Condition F /U with results in 8 weeks DoD visit for: issue repeat prescription for medication Active Condition DoD Mammogram Screening Inactive Condition yearly DoD DEPRESSION Active Condition DoD URETHRAL OBSTRUCTION Active Condition DoD VULVOVAGINITIS ALBA ALBICANS Inactive Condition DoD OTITIS EXTERNA Active Condition mechanical DoD OTITIS MEDIA ACUTE SEROUS Active Condition DoD HYPERLIPIDEMIA Active Condition fu in 5-6 weeks [facility] insomnia Active Condition discussed ways to decrease interuptions to maximize sleep time DoD feared medical condition not demonstrated Inactive Condition bp was borderline but mostly well controlled DoD LABYRINTHITIS Active Condition DoD ASTIGMATISM - REGULAR Active Condition DoD REFRACTIVE ERROR - HYPERMETROPIA Active Condition [facility] visit for: routine eye exam Inactive Condition DoD MAJOR DEPRESSION, SINGLE EPISODE WITH PSYCHOTIC FEATURES Inactive Condition DoD MAJOR DEPRESSION, SINGLE EPISODE Inactive Condition DoD NEUROLEPTIC-INDUCE D ACUTE DYSTONIA Active Condition pt seen in ER DoD ACUTE DYSTONIC REACTION Active Condition [facility] visit for: screening exam genitourinary disorders Inactive Condition [facility] Occupational Therapy Active Condition [facility] Medications Combined list of outpatient medications from Department of Defense and Veterans Affairs facilities.Medications provided include 1) outpatient medications from the last 15 months, and 2) patient-reported medications. Medication Details Route Status Patient Instructions Prescription Expires Prescription Number Last Dispense Date Ordering Provider Order Date Order Qty Source AZELASTINE HCL (AZELASTINE HCL), 137 MCG, SPRAY/PUMP, NASAL, APOTEX RENEE, 30 ml SQUEEZ BTL Cancele d [id number] : 2023 0 Pharmac y Data Transac tion Service Facilit y AZELASTINE HCL (AZELASTINE HCL), 137 MCG, SPRAY/PUMP, NASAL, APOTEX RENEE, 30 ml SQUEEZ BTL Active [id number] 2023 120 Pharmac y Data Transac tion Service Facilit y LEVOTHYROXI NE SODIUM (levothyrox ine sodium), 75 MCG, TABLET, ORAL, [employer], 1000 ea. BOTTLE Cancele d [id number] : 2023 0 Pharmac y Data Transac tion Service Facilit y SYNTHROID (LEVOTHYROX INE SODIUM), 75MCG, TABLET, ORAL, [employer] 1000 ea. BOTTLE Cancele d [id number] : 2023 0 Pharmac y Data Transac tion Service Facilit y Allergies, Adverse Reactions, Alerts Combined list of allergies from Department of Defense and Veterans Affairs facilities. It does not include entries that were removed or entered in error. Substance Category Reaction Severity Reaction type Status Date Reported Comments Source No Known Allergies Drug allergy (disorder) active 09/04/2007 [place], [place] Encounters Combined list of: 1) Encounters from Department of Veterans Affairs facilities going backup to the last 18 months, not all VA inpatient encounters are included; 2) Encounters from the Department of [facility] facilities going backup to 280 months. Location Location Details Encounter Type Encounter Number Reason For Visit Attending Provider ADM Date DC Date Status Disposition Source [facility] TO [facility] FROM OTHER THAN ER OR [facility] [id number] 07/05 [facility] OUTPATIENT [id number] MARCELINA BARAJAS 07/17 Released w/o Limitations [facility](L[facility] Urology ) [facility](ZZZLS L Gynecolog y) OUTPATIENT [id number] APARNA BURCIAGA 07/17 Released w/o Limitations [facility](ZZZ LSL Gynecol ogy) [facility] L Psychiatr y) OUTPATIENT [id number] RAKEL GUEVARA 07/18 Released w/o Limitations [facility](ZZZ LSL Psychia try) [facility] L Psychiatr y) TELE CONSULT [id number] Medicat ion RAKEL GUEVARA 07/25 [facility] LSL Psychia try) [facility](LSL Emergency Room) OUTPATIENT [id number] uncontr ollable shaking , feeling overwhe lmed SHARLENE JAMI Mckeon 07/25 Released w/o Limitations [facility](LSL Emergen cy Room) [facility](ZZZ[facility] L Psychiatr y) OUTPATIENT [id number] RAKEL GUEVARA 08/10 Released w/o Limitations [facility](ZZZ LSL Psychia try) [facility](L Neurology ) OUTPATIENT [id number] r/o CESAR Arredondo 09/04 Released w/o Limitations [facility](LSL Neurolo gy) [facility] Optometry ) OUTPATIENT [id number] routine exam MICHAEL HARPER 03/13 Released w/o Limitations [facility] Optomet ry) [facility] Primary Care) OUTPATIENT [id number] LISSETTE Villarreal 03/19 Released w/o Limitations [facility] Primary Care) [facility] Primary Care) TELE CONSULT [id number] Lab result HENRYSIMON SKYLER FERRARA 04/01 [facility] Primary Care) [facility] Primary Care) OUTPATIENT [id number] dizzy spells MANDY BURTON 04/13 Released w/o Limitations [facility] Primary Care) [facility] Primary Care) OUTPATIENT [id number] LISSETTE ROUSE 04/16 Released w/o Limitations [facility] Primary Care) [facility] Primary Care) OUTPATIENT [id number] f/u LISSETTE MORRIS 05/21 Released w/o Limitations [facility] Primary Care) [facility] Primary Care[facility] OUTPATIENT [id number] ear ache SOMMER ESQUEDA 06/13 Released w/o Limitations [facility]) [facility] Primary Care[facility] OUTPATIENT [id number] ear pain LISSETTE MORRIS Liang 06/29 Released w/o Limitations [facility] Primary Care) [facility] L Gynecolog y[facility] OUTPATIENT [id number] AE to [facility] TOMI HUSSEIN 07/16 [facility] L Gynecolog y) TELE CONSULT [id number] Pt of Dr. Hussein' s, need Sx for uterine prolaps JOSAFAT Casiano 10/12 [facility](ZZZ LSL Gynecol ogy) [facility] Primary Care) OUTPATIENT [id number] bug bite BAGAYMETCA LF, SKYLER R 10/15 Released w/o Limitations [facility] Primary Care) [facility] Primary Care) OUTPATIENT [id number] f/u per bagay BAGAYMETCA LF, SKYLER R 10/18 Released w/o Limitations [facility] Primary Care) [facility] Primary Care) TELE CONSULT [id number] meds CARMEN Yu 03/18 [facility] Primary Care) [facility](Ur ogynecolo g WR) OUTPATIENT [id number] New Patient FAHAD CHRISTY KAYLA 04/22 Released w/o Limitations [facility]( Urogyne colog WR) [facility](Ur ogynecolo g WR) TELE CONSULT [id number] Surgery schedul ing YAKOV LUIS JR 04/23 [facility]( Urogyne colog WR) [facility](Ur ogynecolo g WR) OUTPATIENT [id number] YAKOV LUIS JR 05/20 Released w/o Limitations [facility]( Urogyne colog WR) [facility] Primary Care) OUTPATIENT [id number] surgery f/u DAHL, ALIYAH J 06/04 Released w/o Limitations [facility] Primary Care) [facility] Primary Care) TELE CONSULT [id number] medicat ion rx CARMEN SENA 06/12 [facility] Primary Care) [facility] Primary Care) OUTPATIENT [id number] F/U TANGELA QIU 06/13 [facility] Primary Care) [facility] Primary Care) OUTPATIENT [id number] pain ROBERTTAMIKA 06/24 Released w/o Limitations [facility] Primary Care) [facility] Primary Care) TELE CONSULT [id number] med refill SIVA YU 07/11 [facility] Primary Care) [facility] Primary Care) OUTPATIENT [id number] f/u int abd pain post surgery SKYLER TEIXEIRA 07/12 Released w/o Limitations [facility] Primary Care) [facility](ZZZLS L Gynecolog y) OUTPATIENT [id number] incisio n from TIM Kidd 07/12 Released w/o Limitations [facility](ZZZ LSL Gynecol ogy) [facility](ZZZ[facility] L Gynecolog y) OUTPATIENT [id number] post op appt. NELLY PATEL 07/24 Released w/o Limitations [facility](ZZZ LSL Gynecol ogy) [facility] Primary Care) OUTPATIENT [id number] 5 DAY BP PRABHA FARMER 09/17 Released w/o Limitations [facility] Primary Care) [facility] Primary Care) OUTPATIENT [id number] 5 day bp PRABHA FARMER 09/19 Released w/o Limitations [facility] Primary Care) [facility] Primary Care) OUTPATIENT [id number] 5 DAY BP PRABHA FARMER 09/23 Released w/o Limitations [facility] Primary Care) [facility] Primary Care) OUTPATIENT [id number] hand BAGSKYLER CUEVA Sushma 10/29 Released w/o Limitations [facility] Primary Care) [facility] Primary Care) TELE CONSULT [id number] med refill SIVA YU 12/30 [facility] Primary Care) [facility] Primary Care[facility] OUTPATIENT [id number] Ear Congest ion/Daniel mming in VITOR Rodriguez 02/26 Released w/o Limitations [facility] Primary Care) [facility] Primary Care) OUTPATIENT [id number] AMARJIT Sweeney 06/24 Released w/o Limitations [facility] Primary Care) [facility] Physical Therapy) OUTPATIENT [id number] SPEC-BA GEMMA HARMON 07/20 Released w/o Limitations [facility] Physica l Therapy ) [facility] Physical Therapy) OUTPATIENT [id number] f/u HENRIK SHETTY 07/24 Released with Work/Duty Limitations [facility] Physica l Therapy ) [facility] Physical Therapy) OUTPATIENT [id number] f/u GEMMA KERN 07/29 [facility]ased w/o Limitations [facility] Physica l Therapy ) [place] Room) OUTPATIENT [id number] ALESSANDRA MARCIAL 09/03 Released w/o Limitations [place]Lluvia [place]) [place]) OUTPATIENT [id number] OVARIAN CYST HARMAN TEAGUE 11/18 Released w/o Limitations [place] TELE CONSULT [id number] Notes Entered by: FARNAZ CHINCHILLA 02 Dec 2012 1504 ------- ------- ------- ------- -- pt request ing lab results -pls call HARMAN TEAGUE 12/02 [place] TELE CONSULT [id number] STELLA MCBRIDE 12/23 [place](Gyne cology) [facility] [id number] ADILIA CENTENO 04/10 DISCHARGED HOME [facility] Procedures Combined list of: 1) Procedures from Department of Veterans Affairs facilities going back up to thelast 18 months, not all VA non-surgical procedures are included; 2) All procedures from the Department of Defense facilities. Procedure Procedure Type Code Date Perfomer Comments [facility] e OTHER CYSTOSCOPY 05/30/19 07 [facility] OTHER AND UNSPECIFIED TOTAL ABDOMINAL HYSTERECTOMY 05/30/19 07 [facility] VAGINAL SUSPENSION AND FIXATION 05/30/19 07 [facility] OTHER OPERATIONS ON CUL-DE-SAC 05/30/19 07 [facility] INDIVIDUAL PSYCHOTHERAPY, INSIGHT ORIENTED, BEHAVIOR MODIFYING AND/OR SUPPORTIVE, IN AN INPATIENT HOSPITAL, PARTIAL HOSPITAL OR RESIDENTIAL CARE SETTING, APPROX 20-30 MINUTES [id number] W [facility] 05/29/19 07 [facility] INDIVIDUAL PSYCHOTHERAPY, INSIGHT ORIENTED, BEHAVIOR MODIFYING AND/OR SUPPORTIVE, IN AN INPATIENT HOSPITAL, PARTIAL HOSPITAL OR RESIDENTIAL CARE SETTING, APPROX 45-50 MINUTES [id number] W [facility] 05/25/19 07 [facility] INDIVIDUAL PSYCHOTHERAPY, INSIGHT ORIENTED, BEHAVIOR MODIFYING AND/OR SUPPORTIVE, IN AN INPATIENT HOSPITAL, PARTIAL HOSPITAL OR RESIDENTIAL CARE SETTING, APPROX 20-30 MINUTES [id number] W [facility] 05/25/19 07 [facility] INDIVIDUAL PSYCHOTHERAPY, INSIGHT ORIENTED, BEHAVIOR MODIFYING AND/OR SUPPORTIVE, IN AN INPATIENT HOSPITAL, PARTIAL HOSPITAL OR RESIDENTIAL CARE SETTING, APPROX 45-50 MINUTES [id number] W [facility] 05/24/19 [facility] MEDICAL NUTRITION THERAPY; INITIAL ASSESSMENT AND INTERVENTION, INDIVIDUAL, [id number] WITH THE PATIENT, EACH 15 MINUTES 05/23/19 07 [facility] COLPOPEXY, ABDOMINAL APPROACH 05/22/19 07 DoD INSERTION OF NON-INDWELLING BLADDER CATHETER (EG, STRAIGHT CATHETERIZATION FOR RESIDUAL URINE) 04/22/19 07 [facility] ELECTROCARDIOGRAM, ROUTINE ECG WITH AT LEAST 12 LEADS; WITH INTERPRETATION AND REPORT 09/04/19 08 [facility] OTHER DIAGNOSTIC PROCEDURES ON FETUS AND AMNION 07/11/18 98 [facility] OTHER ARTIFICIAL RUPTURE OF MEMBRANES 07/11/18 98 [facility] MEDICAL INDUCTION OF LABOR 07/11/18 98 [facility] TETANUS AND DIPHTHERIA TOXOIDS (TD) ADSORBED WHEN ADMINISTERED TO INDIVIDUALS 7 YEARS OR OLDER, FOR INTRAMUSCULAR USE 06/07/19 04 DoD PREPARATION OF REPORT OF PATIENT'S PSYCHIATRIC STATUS, HISTORY, TREATMENT, OR PROGRESS (OTHER THAN FOR LEGAL OR CONSULTATIVE PURPOSES) FOR OTHER INDIVIDUALS, AGENCIES, OR INSURANCE CARRIERS 06/04/19 04 [facility] SKIN TEST; TUBERCULOSIS, INTRADERMAL 06/04/19 04 [facility] OPHTHALMOLOGICAL SERVICES: MEDICAL EXAMINATION AND EVALUATION, WITH INITIATION OR CONTINUATION OF DIAGNOSTIC AND TREATMENT PROGRAM; INTERMEDIATE, ESTABLISHED PATIENT 05/28/19 04 [facility] DETERMINATION OF REFRACTIVE STATE 05/12/19 04 [facility] DETERMINATION OF REFRACTIVE STATE 03/01/20 03 DoD SCREENING PAPANICOLAOU SMEAR; OBTAINING, PREPARING AND CONVEYANCE OF CERVICAL OR VAGINAL SMEAR TO LABORATORY 12/08/19 03 [facility] FAMILY PSYCHOTHERAPY (CONJOINT PSYCHOTHERAPY) (WITH PATIENT PRESENT), 50 MINUTES 11/06/19 03 [facility] INDIVIDUAL PSYCHOTHERAPY, INSIGHT ORIENTED, BEHAVIOR MODIFYING AND/OR SUPPORTIVE, IN AN OFFICE OR OUTPATIENT FACILITY, APPROXIMATELY 45 TO 50 MINUTES [id number] WITH THE PATIENT 10/02/19 03 [facility] OTHER MONITORING 10/02/19 03 [facility] MEDICAL INDUCTION OF LABOR 10/02/19 03 [facility] OTHER ARTIFICIAL RUPTURE OF MEMBRANES 10/02/19 03 [facility] NON-STRESS TEST 09/29/19 03 DoD ULTRASOUND, UTERUS, REAL TIME WITH IMAGE DOCUMENTATION, LIMITED (EG, HEART BEAT, PLACENTAL LOCATION, POSITION AND/OR QUALITATIVE AMNIOTIC FLUID VOLUME), 1 OR MORE FETUSES 09/29/19 03 DoD MONITORING DURING LABOR BY CONSULTING PHYSICIAN (IE, NON-ATTENDING PHYSICIAN) WITH WRITTEN REPORT (SEPARATE PROCEDURE); INTERPRETATION ONLY 09/25/19 03 [facility] ULTRASOUND, UTERUS, REAL TIME WITH IMAGE DOCUMENTATION, LIMITED (EG, HEART BEAT, PLACENTAL LOCATION, POSITION AND/OR QUALITATIVE AMNIOTIC FLUID VOLUME), 1 OR MORE FETUSES 09/22/19 DoD ULTRASND, UTERUS,REAL TIME W IMG DOCUMENT, & MATERNL EVAL,AFTER 1ST TRIMESTER (>/= 14 WEEKS 0 DAYS),TRANSABDOMIN APPROACH;EA ADD GEST (LIST SEPARATELY IN ADDITION TO CODE FOR PRIM PROC) 09/19/19 DoD MONITORING DURING LABOR BY CONSULTING PHYSICIAN (IE, NON-ATTENDING PHYSICIAN) WITH WRITTEN REPORT (SEPARATE PROCEDURE); INTERPRETATION ONLY 09/18/19 DoD ULTRASOUND, UTERUS, REAL TIME WITH IMAGE DOCUMENTATION, LIMITED (EG, HEART BEAT, PLACENTAL LOCATION, POSITION AND/OR QUALITATIVE AMNIOTIC FLUID VOLUME), 1 OR MORE FETUSES 09/15/19 DoD MONITORING DURING LABOR BY CONSULTING PHYSICIAN (IE, NON-ATTENDING PHYSICIAN) WITH WRITTEN REPORT (SEPARATE PROCEDURE); INTERPRETATION ONLY 09/13/19 DoD MONITORING DURING LABOR BY CONSULTING PHYSICIAN (IE, NON-ATTENDING PHYSICIAN) WITH WRITTEN REPORT (SEPARATE PROCEDURE); INTERPRETATION ONLY 09/10/19 DoD ULTRASOUND, UTERUS, REAL TIME WITH IMAGE DOCUMENTATION, LIMITED (EG, HEART BEAT, PLACENTAL LOCATION, POSITION AND/OR QUALITATIVE AMNIOTIC FLUID VOLUME), 1 OR MORE FETUSES 09/08/19 DoD MONITORING DURING LABOR BY CONSULTING PHYSICIAN (IE, NON-ATTENDING PHYSICIAN) WITH WRITTEN REPORT (SEPARATE PROCEDURE); INTERPRETATION ONLY 09/04/19 DoD ULTRASOUND, UTERUS, REAL TIME WITH IMAGE DOCUMENTATION, LIMITED (EG, HEART BEAT, PLACENTAL LOCATION, POSITION AND/OR QUALITATIVE AMNIOTIC FLUID VOLUME), 1 OR MORE FETUSES 09/01/19 DoD MONITORING DURING LABOR BY CONSULTING PHYSICIAN (IE, NON-ATTENDING PHYSICIAN) WITH WRITTEN REPORT (SEPARATE PROCEDURE); INTERPRETATION ONLY 08/28/19 DoD MONITORING DURING LABOR BY CONSULTING PHYSICIAN (IE, NON-ATTENDING PHYSICIAN) WITH WRITTEN REPORT (SEPARATE PROCEDURE); INTERPRETATION ONLY 08/25/19 DoD ULTRASOUND, UTERUS, REAL TIME WITH IMAGE DOCUMENTATION, AND MATERNAL EVALUATION, AFTER FIRST TRIMESTER (> OR = 14 WEEKS 0 DAYS), TRANSABDOMINAL APPROACH; SINGLE OR FIRST GESTATION 08/25/19 DoD ULTRASOUND, UTERUS, REAL TIME WITH IMAGE DOCUMENTATION, LIMITED (EG, HEART BEAT, PLACENTAL LOCATION, POSITION AND/OR QUALITATIVE AMNIOTIC FLUID VOLUME), 1 OR MORE FETUSES 08/18/19 DoD MONITORING DURING LABOR BY CONSULTING PHYSICIAN (IE, NON-ATTENDING PHYSICIAN) WITH WRITTEN REPORT (SEPARATE PROCEDURE); INTERPRETATION ONLY 08/14/19 [facility] MONITORING DURING LABOR BY CONSULTING PHYSICIAN (IE, NON-ATTENDING PHYSICIAN) WITH WRITTEN REPORT (SEPARATE PROCEDURE); INTERPRETATION ONLY 08/11/19 [facility] EDUCATIONAL SUPPLIES, SUCH BOOKS, TAPES, AND PAMPHLETS, FOR THE PATIENT'S EDUCATION AT COST TO PHYSICIAN OR OTHER QUALIFIED HEALTH GUNNERY/ORDNANCE OFFICER 07/18/19 [facility] SPECIAL REPORTS SUCH INSURANCE FORMS, MORE THAN THE INFORMATION CONVEYED IN THE USUAL MEDICAL COMMUNICATIONS OR STANDARD REPORTING FORM 06/23/19 [facility] FAMILY PSYCHOTHERAPY (CONJOINT PSYCHOTHERAPY) (WITH PATIENT PRESENT), 50 MINUTES 05/22/19 [facility] ULTRASOUND, UTERUS, REAL TIME WITH IMAGE DOCUMENTATION, AND MATERNAL EVALUATION PLUS DETAILED ANATOMIC EXAMINATION,TRANSABD OMINAL APPROACH; SINGLE OR FIRST GESTATION 05/12/19 [facility] SCREENING PAPANICOLAOU SMEAR; OBTAINING, PREPARING AND CONVEYANCE OF CERVICAL OR VAGINAL SMEAR TO LABORATORY 03/23/19 [facility] PROFESSIONAL SERVICES FOR ALLERGEN IMMUNOTHERAPY NOT INCLUDING PROVISION OF ALLERGENIC EXTRACTS; SINGLE INJECTION 03/28/19 [facility] PROFESSIONAL SERVICES FOR ALLERGEN IMMUNOTHERAPY NOT INCLUDING PROVISION OF ALLERGENIC EXTRACTS; SINGLE INJECTION 11/22/19 [facility] PROFESSIONAL SERVICES FOR ALLERGEN IMMUNOTHERAPY NOT INCLUDING PROVISION OF ALLERGENIC EXTRACTS; SINGLE INJECTION 10/18/19 [facility] PROFESSIONAL SERVICES FOR ALLERGEN IMMUNOTHER IN THE OFFICE/INSTITUTION OF THE PRESCRIBING PHYSICIAN/OTH QUALIFIED HEALTH GUNNERY/ORDNANCE OFFICER,ORESTES CHOW PROVISION OF ALLERGENIC EXTRACT;SINGLE INJECTION 09/19/19 [facility] APPLICATION OF A MODALITY TO 1 OR MORE AREAS; ELECTRICAL STIMULATION (MANUAL), EACH 15 MINUTES 07/30/19 [facility] THERAPEUTIC PROCEDURE, 1 OR MORE AREAS, EACH 15 MINUTES; THERAPEUTIC EXERCISES TO DEVELOP STRENGTH AND ENDURANCE, RANGE OF MOTION AND FLEXIBILITY 07/25/19 [facility] APPLICATION OF A MODALITY TO 1 OR MORE AREAS; TRACTION, MECHANICAL 07/21/19 [facility] SCREENING PAPANICOLAOU SMEAR; OBTAINING, PREPARING AND CONVEYANCE OF CERVICAL OR VAGINAL SMEAR TO LABORATORY 06/25/19 08 [facility] INDIVIDUAL PSYCHOTHERAPY, INSIGHT ORIENTED, BEHAVIOR MODIFYING AND/OR SUPPORTIVE, IN AN OFFICE OR OUTPATIENT FACILITY, APPROXIMATELY 45 TO 50 MINUTES [id number] WITH THE PATIENT 10/26/19 [facility] INDIVIDUAL PSYCHOTHERAPY, INSIGHT ORIENTED, BEHAVIOR MODIFYING AND/OR SUPPORTIVE, IN AN OFFICE OR OUTPATIENT FACILITY, APPROXIMATELY 45 TO 50 MINUTES YPZC-EH-[id number] WITH THE PATIENT 10/05/19 07 [facility] INDIVIDUAL PSYCHOTHERAPY, INSIGHT ORIENTED, BEHAVIOR MODIFYING AND/OR SUPPORTIVE, IN AN OFFICE OR OUTPATIENT FACILITY, APPROXIMATELY 45 TO 50 MINUTES MTCP-GI-JWGN WITH THE PATIENT 09/24/19 [facility] INDIVIDUAL PSYCHOTHERAPY, INSIGHT ORIENTED, BEHAVIOR MODIFYING AND/OR SUPPORTIVE, IN AN OFFICE OR OUTPATIENT FACILITY, APPROXIMATELY 45 TO 50 MINUTES [id number]-ZE-PAAF WITH THE PATIENT 09/13/19 [facility] INDIVIDUAL PSYCHOTHERAPY, INSIGHT ORIENTED, BEHAVIOR MODIFYING AND/OR SUPPORTIVE, IN AN OFFICE OR OUTPATIENT FACILITY, APPROXIMATELY 45 TO 50 MINUTES JXUH-EK-[id number] WITH THE PATIENT 09/10/19 [facility] INDIVIDUAL PSYCHOTHERAPY, INSIGHT ORIENTED, BEHAVIOR MODIFYING AND/OR SUPPORTIVE, IN AN OFFICE OR OUTPATIENT FACILITY, APPROXIMATELY 45 TO 50 MINUTES YOFT-FE-TRLA WITH THE PATIENT 08/13/19 [facility] POSTOPERATIVE FOLLOW-UP VISIT, NORMALLY INCLUDED IN THE SURGICAL PACKAGE, INDICATE THAT EVALUATION & MANAGEMENT SERVICE WAS PERFORMED DURING A POSTOPERATIVE PERIOD REASON RELATED ORIGINAL PROCEDURE 07/25/19 [facility] INDIVIDUAL PSYCHOTHERAPY, INSIGHT ORIENTED, BEHAVIOR MODIFYING AND/OR SUPPORTIVE, IN AN OFFICE OR OUTPATIENT FACILITY, APPROXIMATELY 45 TO 50 MINUTES QFIZ-PO-NMME WITH THE PATIENT 05/11/19 [facility] INDIVIDUAL PSYCHOTHERAPY, INSIGHT ORIENTED, BEHAVIOR MODIFYING AND/OR SUPPORTIVE, IN AN OFFICE OR OUTPATIENT FACILITY, APPROXIMATELY 45 TO 50 MINUTES CFWN-QL-DUGM WITH THE PATIENT 04/18/19 [facility] INDIVIDUAL PSYCHOTHERAPY, INSIGHT ORIENTED, BEHAVIOR MODIFYING AND/OR SUPPORTIVE, IN AN OFFICE OR OUTPATIENT FACILITY, APPROXIMATELY 45 TO 50 MINUTES HDFS-CW-PHIX WITH THE PATIENT 03/21/19 [facility] INDIVIDUAL PSYCHOTHERAPY, INSIGHT ORIENTED, BEHAVIOR MODIFYING AND/OR SUPPORTIVE, IN AN OFFICE OR OUTPATIENT FACILITY, APPROXIMATELY 45 TO 50 MINUTES WFUO-JY-WVNM WITH THE PATIENT 02/29/20 [facility] INDIVIDUAL PSYCHOTHERAPY, INSIGHT ORIENTED, BEHAVIOR MODIFYING AND/OR SUPPORTIVE, IN AN OFFICE OR OUTPATIENT FACILITY, APPROXIMATELY 75 TO 80 MINUTES XRJD-LW-YBMA WITH THE PATIENT 02/08/20 [facility] INDIVIDUAL PSYCHOTHERAPY, INSIGHT ORIENTED, BEHAVIOR MODIFYING AND/OR SUPPORTIVE, IN AN OFFICE OR OUTPATIENT FACILITY, APPROXIMATELY 75 TO 80 MINUTES BPIL-SB-PAHO WITH THE PATIENT 01/25/20 [facility] INDIVIDUAL PSYCHOTHERAPY, INSIGHT ORIENTED, BEHAVIOR MODIFYING AND/OR SUPPORTIVE, IN AN OFFICE OR OUTPATIENT FACILITY, APPROXIMATELY 75 TO 80 MINUTES WCJC-PC-QCID WITH THE PATIENT 01/11/20 [facility] INDIVIDUAL PSYCHOTHERAPY, INSIGHT ORIENTED, BEHAVIOR MODIFYING AND/OR SUPPORTIVE, IN AN OFFICE OR OUTPATIENT FACILITY, APPROXIMATELY 75 TO 80 MINUTES BRWQ-EQ-ERXZ WITH THE PATIENT 01/04/20 06 [facility] INDIVIDUAL PSYCHOTHERAPY, INSIGHT ORIENTED, BEHAVIOR MODIFYING AND/OR SUPPORTIVE, IN AN OFFICE OR OUTPATIENT FACILITY, APPROXIMATELY 45 TO 50 MINUTES ALFU-YK-KQEL WITH THE PATIENT 12/29/19 06 [facility] INDIVIDUAL PSYCHOTHERAPY, INSIGHT ORIENTED, BEHAVIOR MODIFYING AND/OR SUPPORTIVE, IN AN OFFICE OR OUTPATIENT FACILITY, APPROXIMATELY 45 TO 50 MINUTES EMMU-MY-PZRB WITH THE PATIENT 12/14/19 06 [facility] INDIVIDUAL PSYCHOTHERAPY, INSIGHT ORIENTED, BEHAVIOR MODIFYING AND/OR SUPPORTIVE, IN AN OFFICE OR OUTPATIENT FACILITY, APPROXIMATELY 45 TO 50 MINUTES WBMY-AO-SNWW WITH THE PATIENT 12/07/19 06 [facility] INDIVIDUAL PSYCHOTHERAPY, INSIGHT ORIENTED, BEHAVIOR MODIFYING AND/OR SUPPORTIVE, IN AN OFFICE OR OUTPATIENT FACILITY, APPROXIMATELY 45 TO 50 MINUTES CTGY-QL-TMCD WITH THE PATIENT 11/30/19 06 [facility] INDIVIDUAL PSYCHOTHERAPY, INSIGHT ORIENTED, BEHAVIOR MODIFYING AND/OR SUPPORTIVE, IN AN OFFICE OR OUTPATIENT FACILITY, APPROXIMATELY 45 TO 50 MINUTES BTGO-RO-UIMW WITH THE PATIENT 11/23/19 06 [facility] UNLISTED PSYCHIATRIC SERVICE OR PROCEDURE 11/16/19 06 [facility] UNLISTED PSYCHIATRIC SERVICE OR PROCEDURE 11/09/19 06 [facility] PSYCHIATRIC DIAGNOSTIC INTERVIEW EXAMINATION 10/24/19 06 [facility] UNLISTED PSYCHIATRIC SERVICE OR PROCEDURE 10/19/19 06 [facility] UNLISTED PSYCHIATRIC SERVICE OR PROCEDURE 10/12/19 06 [facility] UNLISTED PSYCHIATRIC SERVICE OR PROCEDURE 10/05/19 06 [facility] UNLISTED PSYCHIATRIC SERVICE OR PROCEDURE 09/28/19 06 [facility] UNLISTED PSYCHIATRIC SERVICE OR PROCEDURE 09/14/19 06 [facility] PSYCHIATRIC DIAGNOSTIC INTERVIEW EXAMINATION 09/11/19 06 [facility] UNLISTED PSYCHIATRIC SERVICE OR PROCEDURE 08/28/19 06 [facility] UNLISTED PSYCHIATRIC SERVICE OR PROCEDURE 08/21/19 06 [facility] UNLISTED PSYCHIATRIC SERVICE OR PROCEDURE 08/14/19 06 [facility] UNLISTED PSYCHIATRIC SERVICE OR PROCEDURE 08/08/19 06 [facility] UNLISTED PSYCHIATRIC SERVICE OR PROCEDURE 07/24/19 06 [facility] UNLISTED PSYCHIATRIC SERVICE OR PROCEDURE 07/17/19 06 [facility] UNLISTED PSYCHIATRIC SERVICE OR PROCEDURE 07/11/19 06 [facility] UNLISTED PSYCHIATRIC SERVICE OR PROCEDURE 06/26/19 06 [facility] UNLISTED PSYCHIATRIC SERVICE OR PROCEDURE 06/22/19 06 [facility] UNLISTED PSYCHIATRIC SERVICE OR PROCEDURE 06/15/19 06 [facility] UNLISTED PSYCHIATRIC SERVICE OR PROCEDURE 06/01/19 06 [facility] UNLISTED PSYCHIATRIC SERVICE OR PROCEDURE 05/25/19 06 [facility] UNLISTED PSYCHIATRIC SERVICE OR PROCEDURE 05/03/19 06 [facility] UNLISTED PSYCHIATRIC SERVICE OR PROCEDURE 04/19/19 06 [facility] UNLISTED PSYCHIATRIC SERVICE OR PROCEDURE 04/12/19 06 [facility] UNLISTED PSYCHIATRIC SERVICE OR PROCEDURE 04/05/19 06 [facility] UNLISTED PSYCHIATRIC SERVICE OR PROCEDURE 03/27/19 06 [facility] UNLISTED PSYCHIATRIC SERVICE OR PROCEDURE 03/20/19 06 [facility] OPHTHALMOLOGICAL SERVICES: MEDICAL EXAMINATION AND EVALUATION WITH INITIATION OF DIAGNOSTIC AND TREATMENT PROGRAM; COMPREHENSIVE, NEW PATIENT, 1 OR MORE VISITS 03/13/19 [facility] PSYCHIATRIC DIAGNOSTIC INTERVIEW EXAMINATION 03/06/20 05 [facility] INDIVIDUAL PSYCHOTHERAPY, INSIGHT ORIENTED, BEHAVIOR MODIFYING AND/OR SUPPORTIVE, IN AN OFFICE OR OUTPATIENT FACILITY, APPROXIMATELY 45 TO 50 MINUTES NJRZ-PH-FJTA WITH THE PATIENT 11/02/19 05 [facility] INDIVIDUAL PSYCHOTHERAPY, INSIGHT ORIENTED, BEHAVIOR MODIFYING AND/OR SUPPORTIVE, IN AN OFFICE OR OUTPATIENT FACILITY, APPROXIMATELY 45 TO 50 MINUTES TGPS-BS-WRQT WITH THE PATIENT 10/05/19 05 [facility] INDIVIDUAL PSYCHOTHERAPY, INSIGHT ORIENTED, BEHAVIOR MODIFYING AND/OR SUPPORTIVE, IN AN OFFICE OR OUTPATIENT FACILITY, APPROXIMATELY 45 TO 50 MINUTES WQNL-RA-QOSP WITH THE PATIENT 09/14/19 05 [facility] INDIVIDUAL PSYCHOTHERAPY, INSIGHT ORIENTED, BEHAVIOR MODIFYING AND/OR SUPPORTIVE, IN AN OFFICE OR OUTPATIENT FACILITY, APPROXIMATELY 45 TO 50 MINUTES RRAB-TE-NVXG WITH THE PATIENT 09/07/19 05 [facility] INDIVIDUAL PSYCHOTHERAPY, INSIGHT ORIENTED, BEHAVIOR MODIFYING AND/OR SUPPORTIVE, IN AN OFFICE OR OUTPATIENT FACILITY, APPROXIMATELY 45 TO 50 MINUTES PUYZ-GV-PRXR WITH THE PATIENT 08/31/19 05 [facility] INDIVIDUAL PSYCHOTHERAPY, INSIGHT ORIENTED, BEHAVIOR MODIFYING AND/OR SUPPORTIVE, IN AN OFFICE OR OUTPATIENT FACILITY, APPROXIMATELY 45 TO 50 MINUTES JETT-MM-TTSR WITH THE PATIENT 08/24/19 [facility] INDIVIDUAL PSYCHOTHERAPY, INSIGHT ORIENTED, BEHAVIOR MODIFYING AND/OR SUPPORTIVE, IN AN OFFICE OR OUTPATIENT FACILITY, APPROXIMATELY 45 TO 50 MINUTES ISYT-YO-HYBR WITH THE PATIENT 08/17/19 05 [facility] INDIVIDUAL PSYCHOTHERAPY, INSIGHT ORIENTED, BEHAVIOR MODIFYING AND/OR SUPPORTIVE, IN AN OFFICE OR OUTPATIENT FACILITY, APPROXIMATELY 20 TO 30 MINUTES OVAF-KN-WETP WITH THE PATIENT 08/11/19 [facility] PSYCHIATRIC DIAGNOSTIC INTERVIEW EXAMINATION 07/29/19 [facility] INJECTION, DIPHENHYDRAMINE HCL, UP TO 50 MG 07/26/19 [facility] PSYCHIATRIC DIAGNOSTIC INTERVIEW EXAMINATION 07/20/19 [facility] THERAPEUTIC PROCEDURE(S), GROUP (2 OR MORE INDIVIDUALS) 07/12/19 [facility] THERAPEUTIC PROCEDURE(S), GROUP (2 OR MORE INDIVIDUALS) 07/11/19 [facility] THERAPEUTIC PROCEDURE(S), GROUP (2 OR MORE INDIVIDUALS) 07/08/19 05 [facility] OCCUPATIONAL THERAPY EVALUATION 07/08/19 05 [facility] ELECTROCARDIOGRAM, ROUTINE ECG WITH AT LEAST 12 LEADS; WITH INTERPRETATION AND REPORT 07/06/19 05 [facility] CERVICAL OR VAGINAL CANCER SCREENING; PELVIC AND CLINICAL BREAST EXAMINATION 12/06/19 04 [facility] Modalities Electrical Stimulation Modalities Electrical Stimulation [id number] 07/30/19 08 GEMMA KERN [facility] Modalities Traction Modalities Traction 03188 0 07/30/19 08 GEMMA KERN [facility] Exercises A isted Exercises For ROM Exercises Assisted Exercises For ROM [id number] 07/30/19 08 GEMMA KERN [facility] Physical Therapy: ___ Se ion Segments, 15 Minutes Each Physical Therapy: ___ Session Segments, 15 Minutes Each [id number] 07/25/19 08 HENRIK SHETTY [facility] Modalities Electrical Stimulation Modalities Electrical Stimulation 40641 07/25/19 08 COLASANTIHENRIK [facility] Modalities Traction Modalities Traction 55772 0 07/25/19 08 CHEYENNEHENRIK [facility] Modalities Heat Hot Packs Modalities Heat Hot Packs [id number] 07/25/19 08 COLCHIKAHENRIK [facility] Modalities Traction Modalities Traction 29039 0 07/21/19 08 GEMMA KERN [facility] Physical Therapy Mobilization Joint Physical Therapy Mobilization Joint [id number] 07/21/19 08 GEMMA KERN [facility] Osteopathic Manip Treatment (OMT) 1-2 Body Regions Involved Osteopathic Manip Treatment (OMT) 1-2 Body Regions Involved [id number] 07/21/19 08 GEMMA KERN [facility] Physical Medicine Physical Therapy Evaluation Physical Medicine Physical Therapy Evaluation [id number] 07/21/19 08 GEMMA KERN [facility] Psychiatric Therapy Individual Approximately 45-50 Minutes Psychiatric Therapy Individual Approximately 45-50 Minutes [id number] 10/26/19 07 [facility] Psychiatric Therapy Individual Approximately 45-50 Minutes Psychiatric Therapy Individual Approximately 45-50 Minutes [id number] 10/08/19 07 IDQUINN LEHMAN [facility] Psychiatric Therapy Individual Approximately 45-50 Minutes Psychiatric Therapy Individual Approximately 45-50 Minutes [id number] 09/25/19 07 [facility] Psychiatric Therapy Individual Approximately 45-50 Minutes Psychiatric Therapy Individual Approximately 45-50 Minutes [id number] 09/13/19 07 [facility] WAQAS [facility] Psychiatric Therapy Individual Approximately 45-50 Minutes Psychiatric Therapy Individual Approximately 45-50 Minutes [id number] 08/13/19 07 QUINN FOSTER [facility] Psychiatric Therapy Individual Approximately 45-50 Minutes Psychiatric Therapy Individual Approximately 45-50 Minutes [id number] 05/15/19 07 [facility] Urethral Catheterization Straight (Non-Balloon) Urethral Catheterization Straight (Non-Balloon) [id number] 04/22/19 07 FAHAD CHRISTY [facility] Psychiatric Therapy Individual Approximately 45-50 Minutes Psychiatric Therapy Individual Approximately 45-50 Minutes [id number] 04/19/19 07 [facility] Psychiatric Therapy Individual Approximately 45-50 Minutes Psychiatric Therapy Individual Approximately 45-50 Minutes [id number] 03/21/19 07 [facility] Approximately 45-50 Minutes Psychiatric Therapy Individual Approximately 45-50 Minutes [id number] 03/06/20 06 [facility] Psychiatric Therapy Indiv By A Physician Approx 75-80 Min Psychiatric Therapy Indiv By A Physician Approx 75-80 Min [id number] 02/09/20 QUINN FOSTER [facility] Psychiatric Therapy Indiv By A Physician Approx 75-80 Min Psychiatric Therapy Indiv By A Physician Approx 75-80 Min [id number] 01/25/20 QUINN FOSTER [facility] Psychiatric Therapy Indiv By A Physician Approx 75-80 Min Psychiatric Therapy Indiv By A Physician Approx 75-80 Min [id number] 01/12/20 QUINN FOSTER [facility] Psychiatric Therapy Indiv By A Physician Approx 75-80 Min Psychiatric Therapy Indiv By A Physician Approx 75-80 Min [id number] 01/07/20 QUINN FOSTER [facility] Psychiatric Therapy Individual Approximately 45-50 Minutes Psychiatric Therapy Individual Approximately 45-50 Minutes [id number] 12/29/19 [facility] Psychiatric Therapy Individual Approximately 45-50 Minutes Psychiatric Therapy Individual Approximately 45-50 Minutes [id number] 12/14/19 [facility] Psychiatric Therapy Individual Approximately 45-50 Minutes Psychiatric Therapy Individual Approximately 45-50 Minutes [id number] 12/08/19 [facility] Individual Approximately 45-50 Minutes Psychiatric Therapy Individual Approximately 45-50 Minutes [id number] 12/01/19 06 JULIENNEAVEQUINN Vasquez [facility] Psychological Counseling Psychological Counseling 80311 11/26/19 06 WAZLAVEK, QUINN EDWARD [facility] Psychological Counseling Psychological Counseling 68132 11/17/19 06 WAZLAVEK, QUINN EDWARD [facility] Psychological Counseling Psychological Counseling 55302 11/12/19 06 WAZLAVEK, QUINN EDWARD [facility] Psychiatric Evaluation Comprehensive Examination Psychiatric Evaluation Comprehensive Examination [id number] 10/24/19 06 WAZLAVEK, QUINN EDWARD [facility] Psychological Counseling Psychological Counseling 68655 10/19/19 06 [facility] 55804 10/12/19 06 [facility] Psychological Counseling 30256 10/05/19 06 [facility] Psychological Counseling 32392 10/02/19 06 WAZLAVEK, QUINN EDWARD [facility] Psychological Counseling Psychological Counseling 30250 09/15/19 06 WAZLAVEK, QUINN EDWARD [facility] Psychiatric Evaluation Comprehensive Examination Psychiatric Evaluation Comprehensive Examination [id number] 09/13/19 06 BRITTANY MARTIN [facility] Psychological Counseling Psychological Counseling 61146 08/29/19 06 [facility] 24776 08/21/19 06 [facility] Psychological Counseling 89012 08/14/19 06 WAZLAVEK, QUINN EDWARD [facility] Psychological Counseling Psychological Counseling 54041 08/08/19 06 WAZLAVEK, QUINN EDWARD [facility] Psychological Counseling Psychological Counseling 79472 07/24/19 06 [facility] Psychological Counseling 48888 07/18/19 06 [facility] Psychological Counseling 83386 07/11/19 06 WAZLAVEK, QUINN EDWARD [facility] Psychological Counseling Psychological Counseling 82204 06/26/19 06 WAZLAVEK, QUINN EDWARD [facility] Psychological Counseling Psychological Counseling 18462 06/22/19 06 WAZLAVEK, QUINN EDWARD [facility] Psychological Counseling Psychological Counseling 13146 06/16/19 06 WAZLAVEK, QUINN EDWARD [facility] Psychological Counseling Psychological Counseling 24643 06/05/19 06 [facility] Psychological Counseling 19690 05/25/19 06 QUINN FOSTER [facility] Psychological Counseling Psychological Counseling 64971 05/03/19 06 QUINN FOSTER [facility] Psychological Counseling Psychological Counseling 08761 04/19/19 06 QUINN FOSTER [facility] Psychological Counseling Psychological Counseling 20231 04/12/19 06 [facility] Psychological Counseling Psychological Counseling 54773 04/06/19 06 [facility] Psychological Counseling Psychological Counseling 98322 03/27/19 06 [facility] Psychological Counseling Psychological Counseling 77127 03/20/19 06 [facility] Determination Of Refractive State Determination Of Refractive State [id number] 03/13/19 06 MICHAEL HARPER [facility] Ophthalmological New Patient Start Comprehensive Care Ophthalmological New Patient Start Comprehensive Care [id number] 03/13/19 06 MICHAEL HARPER [facility] Visual Zapata Test Limited Examination Visual Zapata Test Limited Examination [id number] 03/13/19 06 MICHAEL HARPER [facility] Psychiatric Evaluation Comprehensive Examination Psychiatric Evaluation Comprehensive Examination [id number] 03/06/20 05 KRISTINQUINN [facility] Psychiatric Therapy Individual Approximately 45-50 Minutes Psychiatric Therapy Individual Approximately 45-50 Minutes [id number] 11/02/19 05 ALESSANDRA SANDY [facility] Psychiatric Therapy Individual Approximately 45-50 Minutes Psychiatric Therapy Individual Approximately 45-50 Minutes [id number] 10/06/19 05 ALESSANDRA SANDY [facility] Psychiatric Therapy Individual Approximately 45-50 Minutes Psychiatric Therapy Individual Approximately 45-50 Minutes [id number] 09/14/19 05 ALESSANDRA SANDY [facility] Psychiatric Therapy Individual Approximately 45-50 Minutes Psychiatric Therapy Individual Approximately 45-50 Minutes [id number] 09/07/19 05 ALESSANDRA SANDY [facility] Psychiatric Therapy Individual Approximately 45-50 Minutes Psychiatric Therapy Individual Approximately 45-50 Minutes [id number] 08/30/19 05 ALESSANDRA SANDY [facility] Psychiatric Therapy Individual Approximately 45-50 Minutes Psychiatric Therapy Individual Approximately 45-50 Minutes [id number] 08/23/19 05 ALESSANDRA SANDY [facility] Psychiatric Therapy Individual Approximately 45-50 Minutes Psychiatric Therapy Individual Approximately 45-50 Minutes [id number] 08/17/19 05 ALESSANDRA SANDY [facility] Psychiatric Evaluation Comprehensive Examination Psychiatric Evaluation Comprehensive Examination [id number] 07/29/19 05 ALESSANDRA SANDY [facility] Physical Medicine - Group Physical Therapy Se ion Physical Medicine - Group Physical Therapy Session [id number] 07/14/19 05 TY ROOT [facility] Physical Medicine - Group Physical Therapy Se ion Physical Medicine - Group Physical Therapy Session [id number] 07/11/19 05 DAVID INFANTE [facility] [employer] [facility] Occupational Therapy Evaluation Occupational Therapy Evaluation 57284 07/08/19 05 TY ROOT [facility] Physical Medicine - Group Physical Therapy Se ion Physical Medicine - Group Physical Therapy Session [id number] 07/07/19 05 TY ROOT [facility] Social History Combined list of available smoking, tobacco, and other social history from Department of Defense and Veterans Affairs facilities. Social History Type Response Date Comment Sour e This section is an empty social history section. [facility]
--- OUTSIDE RECORDS SUMMARY | 2024-11-03 08:47 | XMS_ITS | Clinical Summary ---
Author Organization [facility] Physician [facility] Building [address] [place] [id number] Care Team Providers Care Assistant Finance Manager Name Role Phone Jerrod Cameron MD Primary Care Provider [phone] Allergies Active Allergy Reactions Criticality Noted Date Comments Adhesive Rash Medium 05/29/2017 Glue on the adhesive Adhesive Tape-Silicones Other (See comments) Low 09/25/2017 made skin come off steristrips Beta-Blockers (Beta-Adrenergic Blocking Agts) Other (See comments) High 03/31/2021 Contraindicated while receiving allergy immunotherapy. Grass Pollen Hives,Itching,Swelli ng Medium 02/15/2020 Grass Pollen-Red Top, Standard Hives,Itching,Swelli ng Medium 02/15/2020 Ccedotm-Xgw-Tha Reductase Inhibitors Other (See comments) Low 12/17/2023 Tree And Shrub Pollen Hives Medium 01/03/2021 Venom-Honey Bee Swelling High 09/25/2017 [place] Pollen Hives,Itching,Swelli ng Medium 02/15/2020 Medications venlafaxine XR (EFFEXOR-XR) 75 mg 24 hr capsuleIndicatio ns:major depressive disorder Take 1 capsule (75 mg total) by mouth every morning 4 Active venlafaxine 150 mg tablet extended release 24hr 24 hr tabletIndication s:major depressive disorder Take 1 tablet (150 mg total) by mouth every morning 8 Active losartan (COZAAR) 50 mg tabletIndication s:hypertension Take 1 tablet (50 mg total) by mouth every morning 2 Active levothyroxine (SYNTHROID) 75 mcg tabletIndication s:hypothyroidism Take 1 tablet (75 mcg total) by mouth health technical writer before breakfast Active fluticasone propionate (FLONASE) 50 mcg/actuation nasal sprayIndications :Allergic Rhinitis Administer 1 spray into each nostril every morning Active naproxen (Aleve) 220 mg tabletIndication s:Anti-inflammat ory,Pain Take 1 tablet (220 mg total) by mouth every 12 (twelve) hours as needed for pain Active fexofenadine (DALY) 180 mg tabletIndication s:Allergic Rhinitis Take 1 tablet (180 mg total) by mouth daily Active azelastine HCl (ASTEPRO ALLERGY NASL)Indications :allergies Administer 1 spray into affected nostril(s) every morning Active HYDROcodone-acet aminophen (NORCO) 10-325 mg per tabletIndication s:Pain Take 1-2 tablets every 4 hours as needed for pain 50 tablet Active Additional Information Patient not taking.Reported on 02/12/2024 cyclobenzaprine (FLEXERIL) 10 mg tabletIndication s:Muscle Spasm Take 1 tablet (10 mg total) by mouth 3 (three) times a day as needed for muscle spasms 40 tablet Active Additional Information Patient not taking.Reported on 02/12/2024 pregabalin (LYRICA) 100 mg capsuleIndicatio ns:nerve pain Take 1 capsule (100 mg total) by mouth 2 (two) times a day Active acetaminophen-co deine (TYLENOL with CODEINE #3) 300-30 mg per tablet Take 1-2 tablets by mouth every 4-6 hours as needed for pain control. 30 tablet Active Additional Information Patient not taking.Reported on 02/12/2024 silver sulfadiazine (SILVADENE, SSD) 1 % cream Apply topically daily 50 g Active triamcinolone (KENALOG) 0.1 % cream Active metoprolol tartrate (LOPRESSOR) 25 mg immediate release tablet Activ e LORazepam (ATIVAN) 0.5 mg tablet Active EPINEPHrine 0.3 mg/0.3 mL auto-injection syringe Active amoxicillin-clav ulanate (AUGMENTIN) 875-125 mg per tablet Active Active Problems Problem Noted Date Diagnosed Date Acute serous otitis media 01/08/2024 Cervicalgia 01/08/2024 Closed fracture of metacarpal bone of left hand 01/08/2024 Overview (01/08/2024): Old fracture left 1st metacarpal. Spoke with Ortho at [facility] and recommend to refer to Occupational Therapy for evaluation at this time since the fracture is old. Hand splint was given. Pt has NSAID for use. Dystonia 01/08/2024 Finding of above normal blood pressure Overview (01/08/2024): 5 day BP and F/u after that Hyperopia 01/08/2024 Insomnia 01/08/2024 Overview (01/08/2024): discussed ways to decrease interuptions to maximize sleep time Labyrinthitis 01/08/2024 Neuroleptic-induced acute dystonia 01/08/2024 Overview (01/08/2024): pt seen in ER Arthralgia of hip 01/08/2024 Overview (01/08/2024): Nml gait. Suspect hip discomfort may be secondary to surgery. Given chronicity, will give trial of mobic. RTC in 2 wks of no improvement or sooner if pain worsens. Will get x-rays and refer to PT if no improvement. 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 Considering IV anbiotic as indicated. Pt instructed for lab draw prior to seeing [employer] doc. Regular astigmatism 01/08/2024 Rhinitis 01/08/2024 Urethral obstruction 01/08/2024 Herniation of rectum into vagina 01/08/2024 Overview (01/08/2024): The risks, benefits, alternatives, and possible outcomes of planned procedures were discussed at length. Multiple questions were answered to patient's satisfaction. Patient gives consent to written and verbal consent to proceed with surgery. PLAN: 1. T Vaginal enterocele 01/08/2024 Lesion of bladder 07/09/2023 Primary osteoarthritis of both knees 07/09/2023 Primary osteoarthritis of left knee 07/09/2023 Visual impairment 06/01/2022 Breast lump 05/30/2022 Swelling 05/30/2022 Overactive bladder 03/27/2022 Vitamin D deficiency 12/28/2021 Osteoarthritis 12/11/2021 Diabetic neuropathy 12/11/2021 Arthralgia of left knee 12/11/2021 Exposure to COVID-19 virus 03/25/2021 Cough 03/25/2021 Fatigue 03/25/2021 Episodic lightheadedness 09/24/2020 Poor sleep pattern 09/24/2020 Chronic venous hypertension with inflammation involving both sides 10/09/2019 Lymphedema 10/09/2019 Bilateral carpal tunnel syndrome 09/24/2019 Localized swelling of right lower leg 09/24/2019 Numbness of right anterior thigh 09/24/2019 Pes planus of both feet 09/24/2019 Anxiety 08/24/2018 Hypertension 08/24/2018 Type 2 diabetes mellitus wit hout complication, without long-term current use of insulin 02/29/2016 Disorder of refraction and accommodation 016 Floaters, bilateral 02/29/2016 Senile nuclear sclerosis, bilateral 02/29/2016 Giant cell tumor of tendon sheath 12/05/2015 Heme positive stool 11/30/2015 Morbid obesity with body mas s index (BMI) of 40.0 to 44.9 in adult 10/28/2015 Mass of skin of finger, right 10/10/2015 Spinal stenosis, lumbar ness on, with neurogenic claudication 11/30/2014 Depression 09/28/2013 Diabetes mellitus 09/28/2013 Hypothyroidism 09/28/2013 Hyperlipidemia 09/28/2013 Essential hypertension, benign 09/28/2013 Surgical History Surgery Date Site/Laterality Comments CHOLECYSTECTOMY RECTAL PROLAPSE REPAIR, RECTOPEXY CARPAL TUNNEL RELEASE BLADDER TUMOR EXCISION HYSTERECTOMY RESECTION TUMOR FINGER RADICAL DILATION AND CURETTAGE OF UTERUS x2 VAGINAL PROLAPSE REPAIR w/rectal, and w/urethral prolapse repair SECTION TOTAL KNEE ARTHROPLASTY 12/24/2023 Left Medical History Medical History Date Comments Diabetes mellitus (HCC) diet con trolled Hypertension Allergic rhinitis Depression Motion sickness Hyperlipidemia Hypothyroidism Obesity Lactose intolerance Arthritis Cataract Type 2 diabetes mellitus Family History Medical History Relation Name Comments No Known Problems Father No Known Problems Mother Relation Name Status Comments Father Mother Alive Social History Tobacco Use Types Packs/Day Years Used Date Smoking Tobacco: Never Smokeless Tobacco: Never Tobacco Cessation:Counseling Given: Not Answered OASIS D0700: Social Isolation Answer Da te Recorded Frequency of experiencing loneliness or isolatio n Never 01/07/2024 OASIS A1250: Transportation Answer Date Recorded Lack of Transportation (Medical) No 01/07/2024 Lack of Transportation (Non-Medical) No 01/07/2024 Patient Unable or Declines to Respond No 01/07/2024 OASIS B1300: Health Literacy Answer Shmuel e Recorded Frequency of needing help to read materials from doctor or pharmacy Rarely 01/07/2024 [facility] Utilities Answer Date Recorded In the past 12 months has th e electric, gas, oil, or water company threatened to shut off services in your home? No 12/25/2023 Social Connection and Isolation Panel Answer Date Recorded Frequency of Communication w ith Friends and Family Not on file 12/25/2023 How often do you get togethe r with friends or relatives? More than three times a week 12/25/2023 How often do you attend chur ch or denominational services? More than 4 times per year 12/25/2023 Do you belong to any clubs o r organizations such as confucianist groups, unions, fraternal or athletic groups, or school groups? No 12/25/2023 How often do you attend meet ings of the clubs or organizations you belong to? Never 12/25/2023 Are you , , di vorced, , never , or living with a partner? 12/25/2023 AUDIT-C Answer Date Recorded Q1: How often do you have a drink containing alcohol? Never 12/17/2023 Q2: How many drinks containi ng alcohol do you have on a typical day when you are drinking? Patient does not drink Q3: How often do you have si x or more drinks on one occasion? Never 12/17/2023 Overall Financial Resource Strain (CARDIA) Answe r Date Recorded How hard is it for you to pa y for the very basics like food, housing, medical care, and heating? Not hard at all 12/25/2023 Hunger Vital Sign Answer Date Recorded Within the past 12 months, y ou worried that your food would run out before you got the money to buy more. Never true 12/25/19 24 Within the past 12 months, t he food you bought just didn't last and you didn't have money to get more. Never true 12/25/2023 PRAPARE - Transportation Answer Date Re corded In the past 12 months, has l ack of transportation kept you from medical appointments or from getting medications? No 12/09 In the past 12 months, has l ack of transportation kept you from meetings, work, or from getting things needed for daily living? No 12/25/2023 Housing Stability Vital Sign Answer Shmuel e Recorded In the last 12 months, was t here a time when you were not able to pay the mortgage or rent on time? No 12/25/2023 In the past 12 months, how m any times have you moved where you were living? 0 12/25/2023 At any time in the past 12 m [facility], were you homeless or living in a group home (including now)? No 12/25/2023 Personal Safety Answer Date Recorded Have you ever been in or are you currently in a harmful physical or emotional relationship or is someone making you feel afraid or unsafe? 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 Gender Identity Not on file Sexual Orientation Not on file Obstetrics History Last Filed Vital Signs Vital Sign Reading Time Taken Comments Blood Pressure 134/70 01/07/2024 3:07 PM CDT Pulse 84 01/07/2024 3:07 PM CDT Temperature 35.8 C (96.4 F) 01/07/2024 3:07 PM CDT Respiratory Rate 18 01/07/2024 3:07 PM CDT Oxygen Saturation 97% 01/07/2024 3:07 PM CDT Inhaled Oxygen Concentration - - Weight 119.7 kg (264 lb) 06/08/2024 8:36 AM CDT Height 170.2 cm (5' 7) 06/08/2024 8:36 AM CDT Body Mass Index 41.35 06/08/2024 8:36 AM CDT Plan of Treatment Health Maintenance Due Date Last Done Comments Albumin Creatinine Ratio, Urine 1962 Colon Cancer Screening-Colonoscopy 1962 Depression Screening 1962 Hepatitis C Screening 1962 Dilated Eye Exam 1962 Foot Exam 1962 Hepatitis B Screening 1980 Regular Well Visit/Exam 18-64 1980 Pneumococcal vaccine <65 (1 of 2 - PCV) 1981 Zoster Vaccine (1 of 2) 2012 Breast Cancer Screening-Mammogram 05/05/2015 015, 05/05/2014 Lipid Panel 06/29/2022 06/29/2021 Hemoglobin A1C 06/16/2024 12/17/2023 Influenza Vaccine (#1) 2024 12/13/2016 eGFR 12/16/2024 12/17/2023 DTaP/Tdap/Td Vaccine (2 - Td or Tdap) 03/19/203411/2024 Medical Devices Implanted Type Area Leveler Device Identifier Shelf Expiration Date Model / Serial / Lot Depuy [employer] Attune Fb Tib Base Sz 4 Por [id number] - [id number] Implanted:Qty: 1 on 12/24/2023 by Jackson Nixon Jr., MD at [facility] Left: Knee [employer]uy [employer] [id number] 10/08/2033 [id number] / / [employer] Attune 7mm Cruciate Retaining Fix Bearing Knee 6 Insert Tibial [id number] - [id number] Implanted:Qty: 1 on 12/24/2023 by Jackson Nixon Jr., MD at [facility] Left: Knee [employer]uy [employer] [id number] 08/08/2026 [id number] / / [id number] [employer] Attune Cruciate Retain Cementless Knee Left 6 Narrow Component [id number] - [id number] Implanted:Qty: 1 on 12/24/2023 by Jackson Nixon Jr., MD at [facility] Left: Knee [employer] [id number] 02/08/2032 [id number] / / [id number] Procedures Procedure Name Priority Date/Time Associated Diagnosis Comments EGFR Routine 12/17/2023 12:06 PM CDT Pre-op testing HEMOGLOBIN A1C Routine 12/17/2023 11:43 AM CDT Pre-op testing Type 2 diabetes mellitus without complication, without long-term current use of insulin (HCC) from Last 3 Months or Most Recently Relevant to Health Maintenance Results * eGFR (12/17/2023 12:06 PM CDT) eGFR >90 >=60 mL/min/1. 73 m2 Comment: Interpretive Data Reference Interval Normal >/= 90 mL/min/1.73m2 Mildly decreased* 60 - 89 mL/min/1.73m2 Mildly to moderately decreased 45 - 59 mL/min/1.73m2 Moderately to severely decreased 30 - 44 mL/min/1.73m2 Severely decreased 15 - 29 mL/min/1.73m2 Kidney Failure < 15 mL/min/1.73m2 *Relative to young adult level Estimated glomerular filtration rate is determined by the 2020 CKD-EPI equation recommended by the National Kidney Foundation (A Unifying Approach to GFR Estimation: Recommendations of the NKF-ASK Task Force on Reassessing the Inclusion of Race in Diagnosing Kidney Disease, JASN 2020). The CKD-EPI equation should not be used for patients with unstable renal function and has not been validated in children and those over 70. Current interpretive data was last reviewed 2021. Blood 12/17/2023 12:0 6 PM CDT 12/17/2023 12:06 PM CDT us Jackson Nixon Jr., MD LAB BLOOD ORDERABLE S Final Result [facility] [id number] Department [place] [address] * (ABNORMAL) Hemoglobin A1c (12/17/2023 11:43 AM CDT) Hgb A1C 6.2(H) 4.0 - 5.6 % Estimated Average Glucose 131 mg/dL [facility] Comment: The ADA recommends reporting an estimated Average Glucose (eAG) with all Hemoglobin A1c results using the equation derived from a study of 507 normal and diabetic adults. Minority populations were underrepresented and children were not included. (Diabetes Care 31:3220-0923, 2008). The eAG is not equivalent to a fasting glucose. Blood 12/17/2023 11:4 3 AM CDT 12/17/2023 12:01 PM CDT Lorelei Simmons NP LAB BLOOD ORDERABLES Final Res ult [facility] [id number] [place] [address] from Last 3 Months or Most Recently Relevant to Health Maintenance Insurance [facility] Advance Directives For more information, please contact: [phone] * Full Code (Latest Code Status on File) Date Activated Date Inactivated Comments 12/24/2023 12:05 PM 12/26/2023 9:18 PM Care Teams Assistant Finance Manager Relationship Specialty Start Date End Date Jerrod Cameron MD [address] [address] PCP - General Family Medicine 06/24/23
--- OUTSIDE RECORDS SUMMARY | 2024-11-03 08:47 | XMS_ITS | Clinical Summary ---
Author Organization [facility] Address [address] [place] [address] Phone Care Team Providers Care Imaging Scheduler Name Role Phone Van Parekh MD Primary Care Provider Unava ilable Allergies Active Allergy Reactions Criticality Noted Date Comments Adhesive Tape Rash 05/29/2017 Bee Venom Swelling 09/25/2017 Gramineae Pollens Hives,Itching,Swelling 2019 Medications levothyroxine (SYNTHROID) 75 MCG Tablet Every Day Active Venlafaxine HCl XR (EFFEXOR-XR) 150 MG TABLET SR 24 HR 300 mg daily. 8 Active Loratadine (CLARITIN PO) Take by mouth daily. Active ALPRAZolam (XANAX) 0.25 MG Tablet Take 1 Tab by mouth 2 times daily as needed for Anxiety. 6 Tab 9 Active Additional Information Patient not taking.Reported on 03/05/2020 lisinopril (PRINIVIL, ZESTRIL) 20 MG Tablet 0 Active losartan (COZAAR) 50 MG Tablet losartan 50 mg tablet Active naproxen sodium (ANAPROX) 220 MG Tablet Take 440 mg by mouth. Active EPINEPHrine (EPIPEN) 0.3 MG/0.3ML Solution Auto-injector 9 Active Active Problems Problem Noted Date Diagnosed Date Anxiety 08/24/2018 Hypertension 08/24/2018 Diabetes mellitus 08/24/2018 Hyperlipidemia 08/24/2018 Thyroid disease 08/24/2018 Overview (08/24/2018): hypothyroidism Other chest pain 08/24/2018 Resolved Problems Problem Noted Date Diagnosed Date Resolved Date Rectocele 06/10/2017 06/12/2017 Family History Medical History Relation Name Comments Thyroid Cancer Brother Hypertension Father Lung Cancer Father Arthritis Mother Heart Disease Mother Hypertension Mother Thyroid Cancer Mother Lung Cancer Paternal Grandfather Relation Name Status Comments Brother Father Mother Paternal Grandfather Social History Tobacco Use Types Packs/Day Years Used Date Smoking Tobacco: Never Smokeless Tobacco: Never Tobacco Cessation:Counseling Given: No Alcohol Use Standard Drinks/Week Comments No 0 (1 standard drink = 0.6 oz pur e alcohol) Comments No Sex and Gender Information Value Date Recorded Sex Assigned at Not on file 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 Gender Identity Not on file Sexual Orientation Not on file Last Filed Vital Signs Vital Sign Reading Time Taken Comments Blood Pressure 142/85 03/05/2020 1:29 PM WAREHOUSE PRICING AND INVENTORY CLERK Pulse 100 03/05/2020 1:29 PM WAREHOUSE PRICING AND INVENTORY CLERK Temperature 36.6 C (97.8 F) 03/05/2020 1:29 PM WAREHOUSE PRICING AND INVENTORY CLERK Respiratory Rate 18 02/13/2020 9:49 AM WAREHOUSE PRICING AND INVENTORY CLERK Oxygen Saturation 96% 03/05/2020 1:29 PM WAREHOUSE PRICING AND INVENTORY CLERK Inhaled Oxygen Concentration - - Weight 131.5 kg (290 lb) 03/05/2020 1:29 PM WAREHOUSE PRICING AND INVENTORY CLERK Height 170.2 cm (5' 7) 03/05/2020 1:29 PM WAREHOUSE PRICING AND INVENTORY CLERK Body Mass Index 45.42 03/05/2020 1:29 PM WAREHOUSE PRICING AND INVENTORY CLERK Plan of Treatment Health Maintenance Due Date Last Done Comments Diabetes: Eye Exam 1962 Diabetes: Foot Exam 1962 Hepatitis C Virus (HCV) Screening 1962 TdaP Immunization 1962 Pneumococcal Immunization (50+ years) (1 of 2 - PCV) 1981 Cologuard 11/05/2007 Colonoscopy 11/05/2007 Colorectal Cancer Screening 11/05/2007 Immunochemical Fecal Occult Blood 11/05/2007 Zoster Immunization (1 of 2) 2012 Diabetes: Hemoglobin A1c 04/01/2020 09/30/2019 Diabetes: Nephropathy Screening 10/18/2020 10/19/2019, 08/24/2018, 08/10/2018, Additional history exists SARS-COV-2 Immunization ( season) 2023 Influenza Immunization (#1) 2024 12/13/2016 Respiratory Syncytial Virus (RSV) Immunization (Adult) (1 - 1-dose 75+ series) 2037 Hepatitis B Immunization Aged Out No longer eligible based on patient's age to complete this topic Human Papillomavirus (HPV) Immunization Aged Out No longer eligible based on patient's age to complete this topic Meningococcal Immunization (ACWY) Aged Out No longer eligible based on patient's age to complete this topic Rotavirus Immunization Aged Out No lo nger eligible based on patient's age to complete this topic Procedures Procedure Name Priority Date/Time Associated Diagnosis Comments CMP (COMPREHENSIVE METABOLIC PANEL) STAT 10/19/2019 2:32 PM CDT from Last 3 Months or Most Recently Relevant to Health Maintenance Results * CMP (Comprehensive Metabolic Panel) (10/19/2019 2:32 PM CDT) SODIUM 139 133 - 144 mmol/L 10/19/2019 2:52 PM CDT [facility] POTASSIUM 3.8 3.5 - 5.1 mmol/L 10/19/2019 2:52 PM CDT [facility] CHLORIDE 105 98 - 107 mmol/L 10/19/2019 2:52 PM CDT [facility] CO2, VENOUS 25 21 - 31 mmol/L 10/19/2019 2:52 PM CDT [facility] ANION GAP 9.0 8.0 - 16.0 mmol/L 10/19/2019 2:52 PM CDT [facility] GLUCOSE 93 70 - 99 mg/dL 10/19/2019 2:52 PM CDT [facility] BUN 14 7 - 25 mg/dL 10/19/2019 2:52 PM CDT [facility] CREATININE, BLOOD 0.86 0.50 - 1.00 mg/dL 10/19/2019 2:52 PM CDT [facility] BUN/CREATININE RATIO 16 6 - 20 ratio 10/19/2019 2:52 PM CDT [facility] TOTAL PROTEIN 6.7 6.4 - 8.9 g/dL 10/19/2019 2:52 PM CDT [facility] ALBUMIN 4.1 3.5 - 5.7 g/dL 10/19/2019 2:52 PM CDT [facility] A/G RATIO 1.6 1.0 - 2.2 10/19/2019 2:52 PM CDT [facility] CALCIUM 8.9 8.6 - 10.3 mg/dL 10/19/2019 2:52 PM CDT [facility] T BILI 0.3 0.2 - 0.8 mg/dL 10/19/2019 2:52 PM CDT [facility] SGOT (AST) 24 13 - 39 U/L 10/19/2019 2:52 PM CDT [facility] SGPT (ALT) 26 7 - 52 U/L 10/19/2019 2:52 PM CDT [facility] ALKALINE PHOSPHATASE 67 34 - 104 U/L 10/19/2019 2:52 PM CDT [facility] GFR, EST. NONAFRICAN >60 >=60 10/19/2019 2:52 PM CDT [facility] GFR, EST. >60 >=60 10/19/2019 2:52 PM CDT [facility] Comment: Creatinine Clearance is the preferred criteria for selecting drug dose adjustments in renally impaired patients. The GFR is provided as additional pertinent clinical information. GFR is reported in mL/min/1.73 sq m. Blood Venipuncture / Unknown 10/19/2019 2:32 PM CDT 10/19/2019 2:34 PM CDT us Elaine Daley PAC CHEMISTRY ORDERABLES F inal Result [facility] [address] [place] [address], from Last 3 Months or Most Recently Relevant to Health Maintenance Insurance [facility] Advance Directives * Full Code (Latest Code Status on File) Date Activated Date Inactivated Comments 08/24/2018 2:28 AM 08/26/2018 5:35 PM CPR-Full Rivas atment: FULL ARREST: Attempt Resuscitation/CPR wit intubation and mechanical ventilation. PRE-ARREST: Use entire range of life support measures to stabilize the patient. * Full Code Date Activated Date Inactivated Comments 06/10/2017 6:09 AM 06/12/2017 11:54 AM Care Teams Imaging Scheduler Relationship Specialty Start Date End Date Van Parekh MD PCP - General Family Medicine 05/30/15
[2024-11-03 09:00] LABS: Hematocrit 41.2 % (37.0-47.0); Hemoglobin 13.6 g/dL (12.0-15.0); Mean Corpuscular HGB Conc 33.0 g/dl (32-36); Mean Corpuscular Hemoglobin 29.4 pg (26-34); Mean Corpuscular Volume 89.0 fl (80-100); Platelet Count Result 202 k/mm3 (150-375); Red Blood Count 4.63 M/mm3 (4.2-5.4); White Blood Count 4.2 K/mm3 (4.5-10.0)
[2024-11-03 09:11] LABS: Hemoglobin A1C 6.0 % (<5.7)
[2024-11-03 09:24] LABS: Alanine Aminotransferase 28 U/L (6-35); Albumin Level 4.1 g/dL (3.5-5.1); Alkaline Phosphatase 85 U/L (38-126); Anion Gap 8 mmol/L (4-12); Aspartate Amino Transferase 52 U/L (14-36); Bilirubin,Total 0.5 mg/dL (0.2-1.3); Blood Urea Nitrogen 14 mg/dL (7-17); Calcium 8.8 mg/dL (8.4-10.2); Carbon Dioxide 25 mmol/L (22-30); Chloride 106 mmol/L (98-107); Cholesterol 199 mg/dL (0-200); Estimated Glomerular Filt Rate > 60; Glucose 132 mg/dL (65-110); HDL Direct 38 mg/dL; Magnesium 1.9 mg/dL (1.6-2.3); Potassium 4.4 mmol/L (3.4-5.0); Sodium 139 mmol/L (137-145); Total Protein 7.0 g/dL (6.3-8.2); Triglycerides 134 mg/dL (<150)
[2024-11-03 10:58] LABS: Thyroid Stimulating Hormone 1.160 uIU/mL (0.465-4.680)
[2024-11-03 11:34] LABS: Vitamin B12 215.0 pg/mL (239-931)
== END 2024-11-03 08:38 | disposition home or self-care (01) ==
LOC: ANHLAB 08:41
PROVIDERS: PCP Registered Nurse; Visit Provider Nurse Practitioner Family
DX: E11.9 Type 2 diabetes mellitus without complications (principal); R00.2 Palpitations; R53.83 Other fatigue; E78.5 Hyperlipidemia, unspecified; E03.9 Hypothyroidism, unspecified
CPT/HCPCS: 36415; 71046; 73110; 80053; 80061; 82306; 82607; 82746; 83036; 83735; 84443; 85027

== ENCOUNTER 2025-03-01 14:21 | Outpatient (CLI) | payer OTHER, SELFPAY ==
--- NOTE | 2025-03-01 | ECG_ITS ---
Test Date: 2025-03-01 14:41:01 Measurements Intervals [place] Rate: 83 P: 50 CT: 170 QRS: 7 QRSD: 98 T: 78 QT: 324 QTc: 383 Interpretive Statements SINUS RHYTHM WITH SINUS ARRHYTHMIA LEFT VENTRICULAR HYPERTROPHY WITH ST-T CHANGE BORDERLINE ECG No previous ECG available for comparison Electronically Signed On 03-01-2025 14:53:48 SHOP TAILOR by Kayden Novak D.O.
--- OUTSIDE RECORDS SUMMARY | 2025-03-01 16:13 | XMS_ITS | Clinical Summary ---
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 Gender Identity Not on file Sexual Orientation Not on file Last Filed Vital Signs Vital Sign Reading Time Taken Comments Blood Pressure 142/85 03/05/2020 1:29 PM MATERIAL ENGINEER Pulse 100 03/05/2020 1:29 PM MATERIAL ENGINEER Temperature 36.6 C (97.8 F) 03/05/2020 1:29 PM MATERIAL ENGINEER Respiratory Rate 18 02/13/2020 9:49 AM MATERIAL ENGINEER Oxygen Saturation 96% 03/05/2020 1:29 PM MATERIAL ENGINEER Inhaled Oxygen Concentration - - Weight 131.5 kg (290 lb) 03/05/2020 1:29 PM MATERIAL ENGINEER Height 170.2 cm (5' 7) 03/05/2020 1:29 PM MATERIAL ENGINEER Body Mass Index 45.42 03/05/2020 1:29 PM MATERIAL ENGINEER Plan of Treatment Health Maintenance Due Date [...] 10/18/2020 10/19/2019, 08/24/2018, 08/10/2018, Additional history exists Influenza Immunization (#1) 2024 12/13/2016 SARS-COV-2 Immunization ( - 2024-26 season) 2024 Respiratory Syncytial Virus (RSV) Immunization (Adult) (1 - 1-dose 75+ series) 2037 Hepatitis B Immunization Aged Out No longer eligible based on patient's age to complete this topic Human Papillomavirus (HPV) Immunization (No Doses Required) Completed Meningococcal Immunization (ACWY) Aged Out No longer [...] - 144 mmol/L 10/19/2019 2:52 PM CDT [facility] POTASSIUM 3.8 3.5 - 5.1 mmol/L 10/19/2019 2:52 PM CDT [facility] CHLORIDE 105 98 - 107 mmol/L 10/19/2019 2:52 PM CDT [facility] CO2, VENOUS 25 21 - 31 mmol/L 10/19/2019 2:52 PM CDT [facility] ANION GAP 9.0 8.0 - 16.0 mmol/L 10/19/2019 2:52 PM CDT [facility] GLUCOSE 93 70 - 99 mg/dL 10/19/2019 2:52 PM CDT [facility] BUN 14 7 - 25 mg/dL 10/19/2019 2:52 PM CDT [facility] CREATININE, BLOOD 0.86 0.50 - 1.00 mg/dL 10/19/2019 2:52 PM CDT [facility] BUN/CREATININE RATIO 16 6 - 20 ratio 10/19/2019 2:52 PM CDT [facility] TOTAL PROTEIN 6.7 6.4 - 8.9 g/dL 10/19/2019 2:52 PM CDT [facility] ALBUMIN 4.1 3.5 - 5.7 g/dL 10/19/2019 2:52 PM CDT [facility] A/G RATIO 1.6 1.0 - 2.2 10/19/2019 2:52 PM CDT [facility] CALCIUM 8.9 8.6 - 10.3 mg/dL 10/19/2019 2:52 PM CDT [facility] T BILI 0.3 0.2 - 0.8 mg/dL 10/19/2019 2:52 PM CDT [facility] SGOT (AST) 24 13 - 39 U/L 10/19/2019 2:52 PM CDT [facility] SGPT (ALT) 26 7 - 52 U/L 10/19/2019 2:52 PM CDT [facility] ALKALINE PHOSPHATASE 67 34 - 104 U/L 10/19/2019 2:52 PM CDT [facility] GFR, EST. NONAFRICAN >60 >=60 10/19/2019 2:52 PM CDT [facility] GFR, EST. >60 >=60 10/19/2019 2:52 PM CDT [facility] Comment: Creatinine Clearance is the preferred criteria for selecting drug dose adjustments in renally impaired patients. The GFR is provided as additional pertinent clinical information. GFR is reported in mL/min/1.73 sq m. Blood Venipuncture / Unknown 10/19/2019 2:32 PM CDT 10/19/2019 2:34 PM CDT Elaine Daley PAC CHEMISTRY ORDERABLES F inal Result [facility] [address] [place] [address], from Last 3 Months or Most Recently Relevant to Health Maintenance Insurance [employer] Advance Directives * Full Code (Latest Code Status on File) Date Activated Date Inactivated Comments 08/24/2018 2:28 AM 08/26/2018 5:35 PM CPR-Full Rivas atment: FULL ARREST: Attempt Resuscitation/CPR wit intubation and mechanical ventilation. PRE-ARREST: Use entire range of life support measures to stabilize the patient. * Full Code Date Activated Date Inactivated Comments 06/10/2017 6:09 AM 06/12/2017 11:54 AM Care Teams Studio Producer Relationship Specialty Start Date End Date Van Parekh MD PCP - General Family Medicine 05/30/15
--- OUTSIDE RECORDS SUMMARY | 2025-03-01 16:13 | XMS_ITS | Patient Health Record ---
Author Organization [employer] [facility] [email or web address] ([address]) Address [address] [facility] [address] [place] [address] Care Team Providers Care Money Room Supervisor Name Role Phone Jerrod Cameron MD Primary Care Provider Unavail able DannymichelleAlton Unavailable [phone] Yoni Joe Unavailable [phone] Allergies No Known Allergies Reason For Referral [...] Risk Notes Problem Intolerance to lactose (finding) (036531066) Lactose intolerance, unspecified (E73.9) Active confirmed Problem Chronic allergic conjunctivitis (34638503) Other chronic allergic conjunctivitis (H10.45) Active confirmed Problem Allergic rhinitis caused by pollen (disorder) (33327975) Allergic rhinitis due to pollen (J30.1) Active confirmed Problem Allergic rhinitis (86981549) Other allergic rhinitis (J30.89) Active confirmed Problem Idiopathic urticaria (32611265) Idiopathic urticaria (L50.1) Active confirmed Problem Allergy to bee venom (926958639) Bee allergy status (Z91.030) Active confirmed Problem Chronic cough (93124684) Chronic cough (R05.3) Active confirmed Encounters Encounter Location Date Provider Diagnosis [facility] [address] [place] [address] 11/16/2024 Joe Yoni Plan Of Treatment No Information Insurance Providers Payer Name Payer Address Payer Phone Subscriber Number Group Number Insured Name Patient Relationship to Insured Coverage Start Date Coverage End Date [facility] [address] [place] [address] [phone] [id number] Robert Ortiz Spouse - patient is the [...]
--- OUTSIDE RECORDS SUMMARY | 2025-03-01 16:14 | XMS_ITS | Data Portability ---
Author Organization [facility] Karla feliz, Office Address [address] [place] [address] Care Team Providers Care Recreational Specialist Name Role Phone KRYSTLE RAMOS Referring Provider KRYSTLE RAMOS Referring Provider [phone] Assessment Encounter Date Assessment Date Assessment LastModified by Organization Details LastModified Time 04/10/2017 04/10/2017 She is a 56 year old para 5 with POPQ stage 3 vaginal prolapse with the posterior wall leading. She appears to have good apical support with good anterior wall support. She has a history of two prior prolapse repairs including mesh and I anticipate she has anterior wall mesh. She presented with some of her old records and I will review them. We discussed the pathophysiology of pelvic organ prolapse and its management. Specific management options discussed included observation, pessary, and surgery with or without pelvic floor muscle training. We reviewed the need for periodic office visits with observation and pessary management and for multichannel urodynamic testing before surgery. She declined to have urodynamics testing with the rationale that her urinary symptoms are not severe enough for her to consider treatement and she would decline any treatment for stress incontinence. She is aware that additional surgery may be needed at a future date if she later feels that her incontinence or voiding dysfunction worsens after surgery. She agrees that cystoscopy to exclude foreign body before surgery may change her surgery plan in way that she would give consent. A total of 80 minutes were spent [id number] with the patient during this encounter and over half of that time was spent on counseling and coordination of care. This document was prepared using auto-correct and/or speech recognition technology. If any word or phrase is confusing, it is likely due to a recognition error. Please notify my office. [email or web address] Not available 04/10/2017 16:06:36 05/29/2017 05/29/2017 She is a 56 year old para 5 with POPQ stage 3 vaginal prolapse with the posterior wall leading. She appears to have good apical support with good anterior wall support. She has a history of two prior prolapse repairs including mesh and I anticipate she has anterior wall mesh. She presented with some of her old records and I reviewed them. On 02/28/1996, she had a round ligament plication with combined colporrhaphy in [place], [place]. On 05/21/2006, she had total abdominal hysterectomy with abdominal sacrocolpopexy using Bard Pelvichol Acellular Collagen Matrix graft. We discussed the pathophysiology of pelvic organ prolapse and its management. Specific management options discussed included observation, pessary, and surgery with or without pelvic floor muscle training. We reviewed the need for periodic office visits with observation and pessary management and for multichannel urodynamic testing before surgery. She declined to have urodynamics testing with the rationale that her urinary symptoms are not severe enough for her to consider treatement and she would decline any treatment for stress incontinence. She is aware that additional surgery may be needed at a future date if she later feels that her incontinence or voiding dysfunction worsens after surgery. She agrees that cystoscopy to exclude foreign body before surgery may change her surgery plan in way that she would give consent. Prolapse surgical technique discussed included posterior colporrhaphy with anterior colporrhaphy and apical suspension procedure only if indicated intraoperatively. A total of 80 minutes were spent [id number] with the patient during this encounter and over half of that time was spent on counseling and coordination of care. This document was prepared using auto-correct and/or speech recognition technology. If any word or phrase is confusing, it is likely due to a recognition error. Please notify my office. [email or web address] Not available 05/29/2017 15:44:30 06/26/2017 06/26/2017 Patient is recovering well s/p surgery. Seen in the ED on 06/23/2017 with complaint of pain and vaginal discharge after one episode of vaginal bleeding. Reviewed results of CT scan which identified no acute pathology. Likely cyst in upper kidney that can be addressed with anticipated future urology referral. Urinalysis and urine culture suggest distal urethral contamination and not UTI. Additional hydrocodone was prescribed during that ER visit. She says a pelvic exam was not done. Exam today shows a slight separation of the superficial suture line where all the sutures are intact with enlarged skin holes around them. Discharge present and no active bleeding. I expect her incision to continue to heal. Use of prescribed and OTC analgesics, stool softeners, dietary and activity recommendations, and care of incisions were reviewed. She was instructed to call the office for any fevers, worsening pain or new symptoms occurring before the next scheduled appointment. She may resume activity without restriction after 09/02/2017. She has follow planned for July 10, 2017. She is a 56 year old para 5 with POPQ stage 3 vaginal prolapse with the posterior wall leading. She appears to have good apical support with good anterior wall support. She has a history of two prior prolapse repairs including mesh and I anticipate she has anterior wall mesh. She presented with some of her old records and I reviewed them. On 02/28/1996, she had a round ligament plication with combined colporrhaphy in [place], [place]. On 05/21/2006, she had total abdominal hysterectomy with abdominal sacrocolpopexy using Bard Pelvichol Acellular Collagen Matrix graft. We discussed the pathophysiology of pelvic organ prolapse and its management. Specific management options discussed included observation, pessary, and surgery with or without pelvic floor muscle training. We reviewed the need for periodic office visits with observation and pessary management and for multichannel urodynamic testing before surgery. She declined to have urodynamics testing with the rationale that her urinary symptoms are not severe enough for her to consider treatement and she would decline any treatment for stress incontinence. She is aware that additional surgery may be needed at a future date if she later feels that her incontinence or voiding dysfunction worsens after surgery. She agrees that cystoscopy to exclude foreign body before surgery may change her surgery plan in way that she would give consent. Prolapse surgical technique discussed included posterior colporrhaphy with anterior colporrhaphy and apical suspension procedure only if indicated intraoperatively. A total of 80 minutes were spent [id number] with the patient during this encounter and over half of that time was spent on counseling and coordination of care. This document was prepared using auto-correct and/or speech recognition technology. If any word or phrase is confusing, it is likely due to a recognition error. Please notify my office. Not available 06/26/2017 09:44:34 07/10/2017 07/10/2017 Patient is recovering well s/p surgery. Seen in the ED on 06/23/2017 with complaint of pain and vaginal discharge after one episode of vaginal bleeding. Reviewed results of CT scan which identified no acute pathology. Likely cyst in upper kidney that can be addressed with anticipated future urology referral. Urinalysis and urine culture suggest distal urethral contamination and not UTI. Additional hydrocodone was prescribed during that ER visit. She says a pelvic exam was not done. Exam today shows a slight separation of the superficial suture line where all the sutures are intact with enlarged skin holes around them. Discharge present without active bleeding on 06/26/2017. I expected her incision to continue to heal and it was during follow up on 07/10/2017. Follow up at around 14 weeks post op. Use of prescribed and OTC analgesics, stool softeners, dietary and activity recommendations, and care of incisions were reviewed. She was instructed to call the office for any fevers, worsening pain or new symptoms occurring before the next scheduled appointment. She may resume activity without restriction after 09/02/2017. [email or web address] Not available 07/10/2017 14:29:26 09/17/2017 09/17/2017 Patient is recovering well s/p surgery. Seen in the ED on 06/23/2017 with complaint of pain and vaginal discharge after one episode of vaginal bleeding. Reviewed results of CT scan which identified no acute pathology. Likely cyst in upper kidney that can be addressed with anticipated future urology referral. Urinalysis and urine culture suggest distal urethral contamination and not UTI. Additional hydrocodone was prescribed during that ER visit. She says a pelvic exam was not done. Exam 07/10/2017 showed a slight separation of the superficial suture line where all the sutures are intact with enlarged skin holes around them. Discharge present without active bleeding on 06/26/2017. I expected her incision to continue to heal and it was during follow up on 07/10/2017. Follow up at around 14 weeks post op shows that she has healed well with good support. She is scheduled for bladder biopsy on 09/25/17. Follow up at one year post op. [email or web address] Not available 09/17/2017 16:08:24 Plan of Treatment Reminders Order Date Submit Date Provider Last Modified By Organization Details Last Modified Time Details Appointments None recorded. Lab culture, urine 2017 018 JULIANE [facility] (Centralized Electronic Ordering - All Locations), Patient Can Go To The Location Of Their Choice, [id number] 8 16:08:37 urinalysis, complete 2017 018 JULIANE [facility] (Centralized Electronic Ordering - All Locations), Patient Can Go To The Location Of Their Choice, [id number] 8 16:08:34 Referral None recorded. Procedures None recorded. Surgeries posterior repair, rectocele colporrhaph y (SURG) 2017 018 JULIANE Not available 8 14:11:42 Imaging None recorded. Medication Orders None recorded. Patient TargetsNo targets recorded. Patient Instructions Encounter Date Encounter Id Patient Instructions Last Modified By Organization Details Last Modified Time 04/10/2017 [id number] cystocele repair information [email or web address] Not available 04/10/2017 15:55:31 urodynamics handout [email or web address] Not available 04/10/2017 15:55:58 pelvic support problems [email or web address] Not available 04/10/2017 16:37:30 We discussed the nature of pelvic prolapse and reviewed the basic strategies of observation, pessary management, or surgical repair. A typical pessary management routine was outlined, the need for periodic removal and the need for periodic office visits were discussed. We reviewed vaginal and abdominal techniques for prolapse repair. After a thorough review of the risks an benefits, she has opted for a vaginal approach. This would include an posterior repair with possible anterior and /or enterocele repair and colpopexy as indicated. Risks, benefits, and alternatives to the procedure were discussed at length with the patient including bleeding sometimes necessitating a blood transfusion, damage to surrounding organs (bowel, bladder, ureters, etc.), postoperative pain and infection, sexual discomfort, stress incontinence, and persistent or worsened overactive bladder symptoms. We discussed the risk of vaginal shortening and narrowing and intra- and perioperative morbidity and postoperative convalescence. We reviewed the current evidence for and against the use of different graft types and discussed the risks, clinical outcomes, and recurrence rates. Hospital stay, recuperation, pain and bowel management, catheter care and postoperative activity restrictions were discussed in detail. We discussed voiding function and the risk of urinary retention post-op. The patient expressed a clear understanding of her treatment alternatives at the conclusion of this [id number] consultation visit. She articulated a full understanding of the elective nature of surgery, her non-surgical options, and potential complications or failure of surgery to correct all or some of her presenting symptoms. All of her questions were answered to her satisfaction. At the present time, she plans to schedule surgery. . [email or web address] Not available 04/10/2017 16:07:09 05/29/2017 [id number] post-op instruction handout [email or web address] Not available 05/29/2017 15:49:16 pre-op instructi on handout [email or web address] Not available 05/29/2017 15:49:16 The procedure, indications, risks, benefits, and alternatives to surgery discussed. Anesthesia and pain medications discussed. She is full code status. The indications for administration of blood products and alternatives available were discussed. Post-op course including activity restrictions reviewed; CISC reviewed. All questions answered to her satisfaction. Patient seems to understand and wishes to proceed with surgery. She will undergo pre-admission testing prior to surgery. Her surgery has been scheduled for 06/10/2017 at 8:00 AM. She will return to the office 4 weeks after surgery for her first post-operative visit on 07/10/2017 at 1 pm. She will receive pre-op antibiotic prophylaxis before surgery. In the OR, she will wear PAS boots for DVT prophylaxis. I have spent 40 minutes with the patient, and more than 50% in counseling and coordination of care regarding her diagnosis, evaluation options, prognosis, and therapeutic options as well as the risks associated with these therapies. This document was prepared using auto-correct and/or speech recognition technology. If any word or phrase is confusing, it is likely due to a recognition error. Please notify my office. [email or web address] Not available 05/29/2017 14:39:33 Reason for Referral None Reported. Results Created Date Observation Date Name Description Value Unit Range Abnormal Flag Note LastModifiedBy Organization Detail LastModifiedTime 04/10/19 18 04/11/2017 urina lysis , compl ete specific gravity 1.018 1.005- 1.030 Not Available [facility] ([facility]) [address], [place], [address], 04/12/2017 16:08:34 04/10/19 18 04/11/2017 urina lysis , compl ete pH 6.0 5.0-7. 5 Not Available [facility] ([facility]) [address], [place], [address], 04/12/2017 16:08:34 04/10/19 18 04/11/2017 urina lysis , compl ete urine-color Yellow yellow Not Available [facility] ([facility]) [address], [place], [address], 04/12/2017 16:08:34 04/10/19 18 04/11/2017 urina lysis , compl ete appearance Clear clear Not Available [facility] ([facility]) [address], [place], [address], 04/12/2017 16:08:34 04/10/19 18 04/11/2017 urina lysis , compl ete WBC esterase Negati ve negati ve Not Available [facility] ([facility]) [address], [place], [address], 04/12/2017 16:08:34 04/10/19 18 04/11/2017 urina lysis , compl ete protein Negati ve negati ve/tra ce Not Available [facility] ([facility]) [address], [place], [address], 04/12/2017 16:08:34 04/10/19 18 04/11/2017 urina lysis , compl ete glucose Negati ve negati ve Not Available [facility] ([facility]) [address], [place], [address], 04/12/2017 16:08:34 04/10/19 18 04/11/2017 urina lysis , compl ete ketones Negati ve negati ve Not Available [facility] ([facility]) [address] [place], [address], 04/12/2017 16:08:34 04/10/19 18 04/11/2017 urina lysis , compl ete occult blood Negati ve negati ve Not Available [facility] ([facility]) [address], [place], [address], 04/12/2017 16:08:34 04/10/19 18 04/11/2017 urina lysis , compl ete bilirubin Negati ve negati ve Not Available [facility] ([facility]) [address], [place], [address], 04/12/2017 16:08:34 04/10/19 18 04/11/2017 urina lysis , compl ete urobilinogen ,semi-qn 0.2 mg/dL 0.2-1. 0 Not Available [facility] ([facility]) [address], [place], [address], 04/12/2017 16:08:34 04/10/19 18 04/11/2017 urina lysis , compl ete nitrite, urine Negati ve negati ve Not Available [facility] ([facility]) [address], [place], [address], 04/12/2017 16:08:34 04/10/19 18 04/11/2017 urina lysis , compl ete microscopic examination Commen t Micro scopi c follo ws if indic ated. Not Available [facility] ([facility]) [address], [place], [address], 04/12/2017 16:08:34 04/10/19 18 04/11/2017 urina lysis , compl ete microscopic examination See below: Micro scopi c was indic ated and was perfo rmed. Not Available [facility] ([facility]) [address] [place], [address], 04/12/2017 16:08:34 04/10/19 18 04/11/2017 urina lysis , compl ete WBC 0-5 /hpf 0 - 5 Not Available [facility] ([facility]) [address], [place], [address], 04/12/2017 16:08:34 04/10/19 18 04/11/2017 urina lysis , compl ete RBC 0-2 /hpf 0 - 2 Not Available [facility] ([facility]) [address], [place], [address], 04/12/2017 16:08:34 04/10/19 18 04/11/2017 urina lysis , compl ete epithelial cells (non renal) 0-10 /hpf 0 - 10 Not Available [facility] ([facility]) [address], [place], [address], 04/12/2017 16:08:34 04/10/19 18 04/11/2017 urina lysis , compl ete epithelial cells (renal) [employer] Not Available [facility] ([facility]) [address], [place], [address], 04/12/2017 16:08:34 04/10/19 18 04/11/2017 urina lysis , compl ete casts Presen t /lpf none seen abnormal Not Available [facility] ([facility]) [address], [place], [address], 04/12/2017 16:08:34 04/10/19 18 04/11/2017 urina lysis , compl ete cast type Hyalin e casts n/a Not Available [facility] ([facility]) [address], [place], [address], 04/12/2017 16:08:34 04/10/19 18 04/11/2017 urina lysis , compl ete crystals [employer] Not Available [facility] ([facility]) [address], [place], [address], 04/12/2017 16:08:34 04/10/19 18 04/11/2017 urina lysis , compl ete crystal type [employer] Not Available [facility] ([facility]) [address], [place], [address], 04/12/2017 16:08:34 04/10/19 18 04/11/2017 urina lysis , compl ete mucus threads Presen t not estab. Not Available [facility] ([facility]) [address] [place], [address], 04/12/2017 16:08:34 04/10/19 18 04/11/2017 urina lysis , compl ete bacteria Few none seen/f ew Not Available [facility] ([facility]) [address] [place], [address], 04/12/2017 16:08:34 04/10/19 18 04/11/2017 urina lysis , compl ete yeast [employer] Not Available [facility] ([facility]) [address] [place], [address], 04/12/2017 16:08:34 04/10/19 18 04/11/2017 urina lysis , compl ete trichomonas [employer] Not Available [facility] ([facility]) [address] [place] [place], [address], 04/12/2017 16:08:34 04/10/19 18 04/11/2017 urina lysis , compl ete comment [employer] Not Available [facility] ([facility]) [address] [place] [place], [address], 04/12/2017 16:08:34 04/10/19 18 04/12/2017 cultu re, urine urine culture,comp rehensive Final report Not Available [facility] ([facility]) [address] [place] [place], [address], 04/12/2017 16:08:37 04/10/19 18 04/12/2017 cultu re, urine result 1 Commen t No growt h in 36 - 48 hours . Not Available [facility] ([facility]) [address], [place], [address], 04/12/2017 16:08:37 04/10/19 18 04/10/2017 urofl owmet ry* No observ ation record ed. [email or web address] Not Available 2017 14:37:22 04/10/19 18 04/10/2017 bladd er scan (PROC ) No observ ation record ed. [email or web address] Not Available 2017 14:37:06 07/11/19 18 07/10/2017 urofl owmet ry* No observ ation record ed. [email or web address] Not Available 2017 14:30:05 07/11/19 18 07/10/2017 bladd er scan (PROC ) No observ ation record ed. Not Available 2017 14:30:41 09/18/19 18 09/17/2017 urofl owmet ry* No observ ation record ed. [email or web address] Not Available 2017 15:39:01 09/18/19 18 09/17/2017 bladd er scan (PROC ) No observ ation record ed. [email or web address] Not Available 2017 15:38:46 Result Notes None recorded. 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 312368306 Active 2017 Tom Crouch MD [address], [place], [address], [place] [facility] 14:20:07 History of diabetes mellitus 446944589 Active 2017 Tom Crouch MD [address], [place], [address], [place] [facility] 14:21:04 History of raised blood lipids 360756909 Active 2017 Tom Crouch MD [address], [place], [address], [place] [facility] 14:21:16 History of hypertension 762658834 Active 2017 Tom Crouch MD [address], [place], [address], [place] [facility] 14:21:25 History of hypothyroidism 305322392 Active 2017 Tom Crouch MD [address], [place], [address], [place] [facility] 14:21:35 History of hysterectomy 343918106 Active 2017 Tom Crouch MD [address], [place], [address], [place] [facility] 14:21:56 History of cholecystectom y 945088168 Active 2017 Tom Crouch MD [address], [place], [address], [place] [facility] 14:22:07 History of tonsillectomy 391082670 Active 2017 Tom Crouch MD [address], [place], [address], [place] [facility] 14:22:15 Family history of Aortic aneurysm 695635159 Active 2017 Tom Crouch MD [address], [place], [address], [place] [facility] 14:22:42 Family history of malignant neoplasm of lung 037940099 Active 2017 Tom Crouch MD [address], [place], [address], [place] [facility] 14:22:57 Family history of malignant neoplasm of thyroid 679061105 Active 2017 Tom Crouch MD [address], [place], [address], [place] [facility] 14:23:15 Screening mammography Active 2017 Tom Crouch MD [address], [place], [address], [place] [facility] 14:23:45 Vaginal wall prolapse 678189827 Active 2017 Tom rCouch MD [address], [place], [address], [place] [facility] 14:24:06 Incomplete emptying of urinary bladder 478314473 Active 2017 Tom Crouch MD [address], [place], [address], [place] [facility] 14:24:18 Female urinary stress incontinence 82917743 Active 2017 Tom Crouch MD [address], [place], [address], [place] [facility] 8 14:24:27 Slowing of urinary stream 26148870 Active 2017 Tom Crouch MD [address], [place], [address], [place] [facility] 14:24:34 Incomplete passage of stool 531232069 Active 2017 Tom Crouch MD [address], [place], [address] [facility] 8 14:24:46 Past history of miscarriage 127480005 Active 2017 Tom Crouch MD [address], [place], [address], [place] [facility] 8 14:41:03 Body mass index 40+ - severely obese 017913116 Active 2017 Tom Crouch MD [address], [place], [address], [place] [facility] 8 14:43:52 Midline cystocele 432813645 Active 2017 Tom Crouch MD [address], [place], [address], [place] [facility] 8 15:54:58 Rectocele with enterocele Active 2017 Tom Crouch MD [address], [place], [address], [place] [facility] 8 15:54:59 Atrophy of skeletal muscle of pelvis 624720493 Active 2017 Tom Crouch MD [address], [place], [address], [place] [facility] 8 16:08:21 Long-term drug therapy Active 2017 Tom Crouch MD [address], [place], [address], [place] [facility] 8 15:51:31 History of anxiety state 003763228 Active 2017 Tom Crouch MD [address], [place], [address], [place] [facility] 8 15:51:32 Squamous metaplasia of urinary bladder 612317854 Active 2017 Tom Crouch MD [address], [place], [address], [place] [facility] 8 15:51:34 Urethrotrigoni tis 07068059 Active 2017 Tom Crouch MD [address] [facility] [address], [place], [address], [place] [facility] 8 15:51:36 Pre-surgery evaluation Active 2017 Tom Crouch MD [address] [facility] [address], [place], [address], [place] [facility] 8 15:51:38 Problem Notes None recorded. Procedures Surgical History Date Name Laterality Status Provider Name and Address Organization Details Recorded Time 09/18/19 18 NON-INVASIVE FLOW STUDY completed Tom Crouch MD [address] [address], [place], [address], [place] [facility] 09/17/2017 15:39:49 07/11/19 18 NON-INVASIVE FLOW STUDY completed Tom Crouch MD [address] [address], [place], [address], [place] [facility] 07/10/2017 14:31:18 06/11/19 18 POSTERIOR REPAIR, RECTOCELE COLPORRHAPHY (SURG) completed Tom Crouch MD [address] [facility] [address] , [place], [address], [place] [facility] 06/10/2017 14:11:46 05/30/19 18 Catheter Teaching completed Caitlyn Best [facility] 05/29/2017 14:19:16 05/30/19 18 Cystoscopy completed Tom Crouch MD [address] [facility] [address], [place], [address], [place] [facility] 05/29/2017 15:46:16 04/10/19 18 NON-INVASIVE FLOW STUDY completed Tom Crouch MD [address] [facility] [address], [place], [address], [facility] 04/10/2017 14:38:40 04/10/19 18 In and Out Catheterization completed [facility] 04/10/2017 14:33:40 03/11/19 06 Hysterectomy completed [facility] 04/10/2017 14:13:01 03/11/18 96 Prolapse Surgery completed [facility] 04/10/2017 14:12:14 03/11/18 89 Dilation and curettage completed [facility] 04/10/2017 14:12:00 03/11/18 88 Cholecystectomy completed [facility] 04/10/2017 14:13:11 03/11/18 69 Tonsillectomy completed [facility] 04/10/2017 14:13:18 Imaging Results None recorded. Procedure Notes None recorded. Medical Equipment None Reported. Allergies Allergen ID Allergen Name Allergen Category Reaction Reaction Severity Criticality Documentation Date Start Date Code Code System Note Provider Name and Address Organization Details Recorded Time 31760 adhesive tape environme nt,medica tion Not available Not available Not available 04/10/2017 [facility] 8 14:08:43 Medications Name Sig Start Date Stop Date Status Note LastModified by Organization Details LastModified Time losartan 50 mg tablet Take 1 tablet every day by oral route for 90 days. active Not Available Not Available No t Available metformin 500 mg tablet Take 1 tablet every day by oral route for 90 days. active Not Available Not Available No t Available atorvastatin 20 mg tablet 04/10 completed Not Available Not Available Not Available fluconazole 150 mg tablet 04/10 completed Not Available Not Available Not Available hydrocodone 5 mg-acetaminop hen 325 mg tablet active Not Available Not Available Not Available lisinopril 20 mg tablet active Not Available Not Available No t Available venlafaxine ER 150 mg capsule,exten ded release 24 hr active Not Available Not Available Not Available triamcinolone acetonide 0.1 % topical cream active Not Available Not Available Not Available levothyroxine 75 mcg tablet Take 1 tablet every day by oral route for 90 days. active Not Available Not Available No t Available alprazolam 0.25 mg tablet active Not Available Not Available Not Available lorazepam 0.5 mg tablet active Not Available Not Available No t Available epinephrine 0.3 mg/0.3 mL injection, auto-injector 04/10 completed Not Available Not Available Not Available methylprednis olone 4 mg tablets in a dose pack active Not Available Not Available No t Available fluticasone propionate 50 mcg/actuation nasal spray,suspens ion 04/10 completed Not Available Not Available Not Available amoxicillin 875 mg-potassium clavulanate 125 mg tablet active Not Available Not Availabl e Not Available Mucinex 600 mg tablet, extended release TAKE 1 TABLET BY MOUTH TWO TIMES A DAY 04/10 completed Not Available Not Available Not Available metoprolol tartrate 25 mg tablet active Not Available Not Available No t Available Aleve active Not Available Not Availa ble Not Available venlafaxine 300mg daily active Not Available Not Available No t Available Claritin active Not Available Not Avai lable Not Available venlafaxine ER 150 mg tablet,extend ed release 24 hr Take 1 tablet every day by oral route for 90 days. active Not Available Not Available No t Available Vitals Date Recorded Body height Body mass index (BMI) Body weight Heart rate Systolic And Diastolic Provider Name and Address Organization Details Last Updated DateTime 04/10/2017 170.18 cm 43.6 kg/m2 014047.8 3 g 96 /min 138/88 mm[Hg] Caitlyn Bearden [facility] 04/10/2017 14:24:18 Date Recorded Body height Body mass index (BMI) Body weight Heart rate Systolic And Diastolic Provider Name and Address Organization Details Last Updated DateTime 05/29/2017 170.18 cm 25.7 kg/m2 31778.59 g 86 /min 132/80 mm[Hg] Caitlyn Bearden [facility] 05/29/2017 14:19:04 Social History Question Answer Notes LastModified by Organizat ion Details LastModified Time Tobacco Smoking Status Never Smoker Not Available [facility] 01/12/2020 03:18:36 Do You Have An Advance Directive? No [id number] Information not available 01/12/2020 What Is Your Level Of Caffeine Consumption? None [id number] Information not available 01/12/2020 How Many Days In The Past Year Have You Had A Heavy Drinking Consumption (4+ Female, 5+ Male)? 0 Information no t available 04/10/2017 Exercise No Information no t available 04/10/2017 Heavy Lifting (> 25 Lbs.) No Information not available 04/10/2017 Alcohol No Information no t available 04/10/2017 Spouse's Occupation Dentist Information not available 04/10/2017 Marital Status Informatio n not available 04/10/2017 Do You Have A Medical Power Of Records Administrator? No [id number] Information not available 01/12/2020 What Was The Date Of Your Most Recent Tobacco Screening? 04/10/2017 [id number] Information not available 01/12/2020 Are You Sexually Active? Yes [id number] Information not available 01/12/2020 How Much Tobacco Do You Smoke? No [id number] Information not available 01/12/2020 Has Tobacco Cessation Counseling Been Provided? No [id number] Information not available 01/12/2020 Sex: Unknown Functional Status Question Answer Note LastModified by Organization D etails LastModified Time What is your level of alcohol consumption? 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 None [id number] Information not available 01/12/2020 Mental Status None recorded. Family History Relationship Description Onset Age of this Age Resolved Age Notes LastModified by Organization Details LastModified Time Mother Heart disease 76 atower Not available 2017 14:10:15 Father Malignant neoplasm of lung 42 atower Not available 2017 14:10:27 Sister Malignant neoplasm of thyroid gland 41 atower Not available 2017 14:10:52 Medical History Condition Response HIV or AIDS N Gout N Thyroid Disease Y High Blood Pressure N Psychiatic Illness N Childhood Other N Childhood Rheumatic Fever N Glaucoma N Depression N Pneumonia N Pacemaker N Frequent Bladder Infections N Diabetes - Non-insulin Y Leg / Foot ulcers N Paralysis N Anxiety Disorder N Stomach/Duodenal Ulcers N Arthritis N Childhood Rubella N Cancer N Stroke N Kidney / Bladder Stones N Epilepsy/Seizure Disorder N Polio N High Cholesterol N Liver Disease N Dialysis N Fibromyalgia N Kidney Disease N Chronic Coughing N Chronic Back Problems N Claustrophobia N Parkinson's Disease N Anemia / Bleeding Disorder N Hiatal Hernia or Reflux N Multiple Sclerosis N Childhood Kidney Infections N Other Adult Illnesses N Childhood Bladder Infections N Heart Murmur N Tuberculosis N Diabetes - Insulin N Diverticulitis N Heart Attack N Asthma N Blood Clots (DVT) N Serious Injury/Accident N Heart Disease N Pulmonary Embolism N Childhood Scarlet Fever N Osteoporosis N Gynecological History Statement/Question Response Date of Last Mammo 2016 Births 5 Pregnancies 8 Obstetrics History GPAL:G 8 P 5 0 3 5 Type Value Full Term 5 Spontaneous 3 Living 5 Total 8 Past Encounters Encounter ID Performer Location Encounter Start Date Encounter Closed Date Diagnosis/Indication Diagnosis SNOMED-CT Code Diagnosis ICD10 Code Diagnosis IMO Codes Diagnosis Note [id number] Tom Crouch MD Office [address] [place] [address] 04/10/2017 13:59:03 04/10/2017 15:56:08 Increased frequency of urination 327781323 R35.0 Vaginal wall prolapse 39 5624074 N81.4 Body mass index 40+ - severely obese 583843874 Z68.41 43.6 Midline cystocele 674539 003 N81.11 1-2/4 Rectocele with enterocele 452310842 N81.5 4/4 Slowing of urinary stream 63076213 R39.12 Female uri nary stress incontinence 60140409 N39.3 She is not bothered from the symptoms enough to consider treatment and would decline surgery to correct concurrent with prolapse repair even if urodynamic s showed that could likely be corrected at the same time. Incomplete emptying of urinary bladder 632459448 R39.14 History of diabetes mellitus 244782314 Z86.39 taking metformin History of raised blood lipids 626064043 Z86.39 History of hypertension 924565277 Z86.79 taking losartin, 138/88, She should follow up with her primary care physician for elevated blood pressure. History of hypothyroidism 241343079 Z86.39 taking levothyrox ine History of hysterectomy 683499936 Z90.711 with cystocele and rectocele repair in 2005 at [facility], attempted prolapse repair in 1995 in [facility] History of cholecystectomy 519617882 Z90.49 1987 [facility] History of tonsillectomy 466500998 Z90.[address] [place] [address] Family his tory of Aortic aneurysm 477089063 Z82.49 mother Family his tory of malignant neoplasm of lung 054565600 Z80.1 father Family his tory of malignant neoplasm of thyroid 836535660 Z80.8 Screening mammography 24 033821 Z12.31 2016 Allergy to adhesive agent 094921134 Z91.048 including Steri strips Incomplete passage of stool 743428551 R15.0 Past pregn kemal history of miscarriage 546997941 Z87.59 3 total and 2 with D&C one in 1988 in [facility] and another in 1996 at [facility] Atrophy of skeletal muscle of pelvis 399784924 N81.84 3/5 [id number] Tom Crouch MD Office [address] [place] [address] 05/29/2017 14:00:09 05/29/2017 15:56:23 Increased frequency of urination 866776183 R35.0 Vaginal wall prolapse 39 0558253 N81.4 Midline cystocele 326296 003 N81.11 1-2/4 Rectocele with enterocele 028805693 N81.5 4/4 Body mass index 40+ - severely obese 697448595 Z68.41 43.6 Slowing of urinary stream 46608532 R39.12 Female uri nary stress incontinence 10871021 N39.3 She is not bothered from the symptoms enough to consider treatment and would decline surgery to correct concurrent with prolapse repair even if urodynamic s showed that could likely be corrected at the same time. Incomplete emptying of urinary bladder 780874008 R39.14 History of diabetes mellitus 647593481 Z86.39 taking metformin History of raised blood lipids 451792608 Z86.39 History of hypertension 775996918 Z86.79 taking losartin, 138/88, She should follow up with her primary care physician for elevated blood pressure. History of hypothyroidism 209529858 Z86.39 taking levothyrox ine History of hysterectomy 323617967 Z90.711 per patient history abdominal hysterecto my with cystocele and rectocele repair in 2005 at [facility], attempted prolapse repair in 1995 in [facility] which is similar to what I learned from reviewing her records: on 02/28/1996 , she had a round ligament plication with combined colporrhap hy in [place], [place]; and on 05/21/2006, she had total abdominal hysterecto my with abdominal sacrocolpo pexy using Bard Pelvichol Acellular Collagen Matrix graft. History of cholecystectomy 338541836 Z90.49 1987 [facility] History of tonsillectomy 476955727 Z90.[address] [place] [address] Family his tory of Aortic aneurysm 663853567 Z82.49 mother Family his tory of malignant neoplasm of lung 737503721 Z80.1 father Family his tory of malignant neoplasm of thyroid 159233383 Z80.8 Screening mammography 24 304748 Z12.31 2016 Allergy to adhesive agent 801940263 Z91.048 including Steri strips Incomplete passage of stool 367118138 R15.0 Past pregn kemal history of miscarriage 675575738 Z87.59 3 total and 2 with D&C one in 1988 in [facility] and another in 1996 at [facility] Atrophy of skeletal muscle of pelvis 032362223 N81.84 3/5 Pre-surger y evaluation 443665916 Z01.818 Urethrotrigonitis 559370 08 N30.30 grade 1/3 Squamous m etaplasia of urinary bladder 275514420 N32.89 she has an exophytic lesion near the right ureteral orifice that most likely is an area of raised squamous metaplasia . We discussed possible biopsy during an upcoming surgery if I can line up a urologist. If not, then the plan is to collect urine cytology at the time of surgery and make an outpatient referral. She is not in favor of the option to reschedule surgery. History of anxiety state 860691277 F41.9 She has anxiety before surgeries and requests a Valium preop. I will add a request to anesthesia for sedation as soon as possible on the morning of surgery. Long-term drug therapy 812513857 Z79.899 She should stop taking NSAIDs for one week before surgery. [id number] Tom Crouch MD Office [address] [facility] [address] [place] [address] 06/26/2017 09:11:13 06/26/2017 09:46:32 Postoperative follow-up visit 019699841 Z09 History of surgery 03992 5003 Z98.890 06/10/2017, posterior repair Increased frequency of urination 740677785 R35.0 Vaginal wall prolapse 39 6955847 N81.4 Midline cystocele 812754 003 N81.11 1-2/4 Rectocele with enterocele 825490476 N81.5 / Body mass index 40+ - severely obese 441862031 Z68.41 43.6 Slowing of urinary stream 79625412 R39.12 Female uri nary stress incontinence 40014569 N39.3 She is not bothered from the symptoms enough to consider treatment and would decline surgery to correct concurrent with prolapse repair even if urodynamic s showed that could likely be corrected at the same time. Incomplete emptying of urinary bladder 106445759 R39.14 History of diabetes mellitus 542058380 Z86.39 taking metformin History of raised blood lipids 503224622 Z86.39 History of hypertension 427135043 Z86.79 taking losartin, 138/88, She should follow up with her primary care physician for elevated blood pressure. History of hypothyroidism 601464530 Z86.39 taking levothyrox ine History of hysterectomy 181875864 Z90.711 per patient history abdominal hysterecto my with cystocele and rectocele repair in 2005 at [facility], attempted prolapse repair in 1995 in [facility] which is similar to what I learned from reviewing her records: on 02/28/1996 , she had a round ligament plication with combined colporrhap hy in [place], [place]; and on 05/21/2006, she had total abdominal hysterecto my with abdominal sacrocolpo pexy using Bard Pelvichol Acellular Collagen Matrix graft. History of cholecystectomy 088789249 Z90.49 1987 [facility] History of tonsillectomy 278017330 Z90.[address] [place] [address] Family his tory of Aortic aneurysm 620261817 Z82.49 mother Family his tory of malignant neoplasm of lung 513451294 Z80.1 father Family his tory of malignant neoplasm of thyroid 531724796 Z80.8 Screening mammography 24 137731 Z12.31 2016 Allergy to adhesive agent 224323086 Z91.048 including Steri strips Incomplete passage of stool 335981177 R15.0 Past pregn kemal history of miscarriage 855296648 Z87.59 3 total and 2 with D&C one in 1988 in [facility] and another in 1996 at [facility] Atrophy of skeletal muscle of pelvis 619601149 N81.84 3/5 Pre-surger y evaluation 452619924 Z01.818 Urethrotrigonitis 501783 08 N30.30 grade 1/3 Squamous m etaplasia of urinary bladder 845829906 N32.89 she has an exophytic lesion near the right ureteral orifice that most likely is an area of raised squamous metaplasia . We discussed possible biopsy during an upcoming surgery if I can line up a urologist. If not, then the plan is to collect urine cytology at the time of surgery and make an outpatient referral. She is not in favor of the option to reschedule surgery. History of anxiety state 121724651 F41.9 She has anxiety before surgeries and requests a Valium preop. I will add a request to anesthesia for sedation as soon as possible on the morning of surgery. Long-term drug therapy 683460003 Z79.899 She should stop taking NSAIDs for one week before surgery. [id number] Tom Crouch MD Office [address] [place] [address] 07/10/2017 13:44:23 07/10/2017 14:30:30 Postoperative follow-up visit 987550931 Z09 History of surgery 29758 5003 Z98.890 06/10/2017, posterior repair Increased frequency of urination 923876396 R35.0 Vaginal wall prolapse 39 1622585 N81.4 Midline cystocele 866843 003 N81.11 1-2/4 Rectocele with enterocele 651345122 N81.5 4/4 Body mass index 40+ - severely obese 429021873 Z68.41 43.6 Slowing of urinary stream 19451671 R39.12 Female uri nary stress incontinence 92886867 N39.3 She is not bothered from the symptoms enough to consider treatment and would decline surgery to correct concurrent with prolapse repair even if urodynamic s showed that could likely be corrected at the same time. Incomplete emptying of urinary bladder 934599141 R39.14 History of diabetes mellitus 635043728 Z86.39 taking metformin History of raised blood lipids 710398563 Z86.39 History of hypertension 777897531 Z86.79 taking losartin, 138/88, She should follow up with her primary care physician for elevated blood pressure. History of hypothyroidism 939393543 Z86.39 taking levothyrox ine History of hysterectomy 454212455 Z90.711 per patient history abdominal hysterecto my with cystocele and rectocele repair in 2005 at [facility], attempted prolapse repair in 1995 in [facility] which is similar to what I learned from reviewing her records: on 02/28/1996 , she had a round ligament plication with combined colporrhap hy in [place]; and on 05/21/2006, she had total abdominal hysterecto my with abdominal sacrocolpo pexy using Bard Pelvichol Acellular Collagen Matrix graft. History of cholecystectomy 899466355 Z90.49 1987 [facility] History of tonsillectomy 885706278 Z90.[address] [place] [address] Family his tory of Aortic aneurysm 498854247 Z82.49 mother Family his tory of malignant neoplasm of lung 964353343 Z80.1 father Family his tory of malignant neoplasm of thyroid 702462741 Z80.8 Screening mammography 24 442238 Z12.31 2016 Allergy to adhesive agent 089941671 Z91.048 including Steri strips Incomplete passage of stool 713538631 R15.0 Past pregn kemal history of miscarriage 282233333 Z87.59 3 total and 2 with D&C one in 1988 in [facility] and another in 1996 at [facility] Atrophy of skeletal muscle of pelvis 001540107 N81.84 3/5 Pre-surger y evaluation 367639280 Z01.818 Urethrotrigonitis 462568 08 N30.30 grade 1/3 Squamous m etaplasia of urinary bladder 319340702 N32.89 she has an exophytic lesion near the right ureteral orifice that most likely is an area of raised squamous metaplasia . We discussed possible biopsy during an upcoming surgery if I can line up a urologist. If not, then the plan is to collect urine cytology at the time of surgery and make an outpatient referral. She is not in favor of the option to reschedule surgery. She had arranged for a referral through her primary care physician by her post op follow up on 07/10/2017. History of anxiety state 386210598 F41.9 She has anxiety before surgeries and requests a Valium preop. I will add a request to anesthesia for sedation as soon as possible on the morning of surgery. Long-term drug therapy 399975456 Z79.899 She should stop taking NSAIDs for one week before surgery. [id number] Tom Crouch MD Office [address] [facility] [address] [place] [address] 09/17/2017 15:11:37 09/17/2017 16:10:41 Rectocele with enterocele 946501483 N81.5 4/4 Atrophy of skeletal muscle of pelvis 001138158 N81.84 3/5 Slowing of urinary stream 69820443 R39.12 Incomplete emptying of urinary bladder 410876630 R39.14 Female uri nary stress incontinence 98286785 N39.3 She is not bothered from the symptoms enough to consider treatment and would decline surgery to correct concurrent with prolapse repair even if urodynamic s showed that could likely be corrected at the same time. Urethrotrigonitis 290228 08 N30.30 grade 1/3 Postoperat travis follow-up visit 612726676 Z09 History of surgery 21978 5003 Z98.890 06/10/2017, posterior repair Increased frequency of urination 047879634 R35.0 Vaginal wall prolapse 39 3600466 N81.4 Midline cystocele 474479 003 N81.11 1-2/ Body mass index 40+ - severely obese 604580534 Z68.41 43.6 History of diabetes mellitus 618968877 Z86.39 taking metformin History of raised blood lipids 182287692 Z86.39 History of hypertension 545367171 Z86.79 taking losartin, 138/88, She should follow up with her primary care physician for elevated blood pressure. History of hypothyroidism 118951885 Z86.39 taking levothyrox ine History of hysterectomy 295043742 Z90.711 per patient history abdominal hysterecto my with cystocele and rectocele repair in 2005 at [facility], attempted prolapse repair in 1995 in [facility] which is similar to what I learned from reviewing her records: on 02/28/1996 , she had a round ligament plication with combined colporrhap hy in [place]; and on 05/21/2006, she had total abdominal hysterecto my with abdominal sacrocolpo pexy using Bard Pelvichol Acellular Collagen Matrix graft. History of cholecystectomy 268816573 Z90.49 1987 [facility] History of tonsillectomy 382449052 Z90.[address] [place] [address] Family his tory of Aortic aneurysm 991064898 Z82.49 mother Family his tory of malignant neoplasm of lung 383052567 Z80.1 father Family his tory of malignant neoplasm of thyroid 962422794 Z80.8 Screening mammography 24 918144 Z12.31 2016 Allergy to adhesive agent [id number] Z91.048 including Steri strips Incomplete passage of stool 322140359 R15.0 Past pregn kemal history of miscarriage 675239367 Z87.59 3 total and 2 with D&C one in 1988 in [facility] and another in 1996 at [facility] Pre-surger y evaluation [id number] Z01.818 Squamous m etaplasia of urinary bladder [id number] N32.89 she has an exophytic lesion near the right ureteral orifice that most likely is an area of raised squamous metaplasia . We discussed possible biopsy during an upcoming surgery if I can line up a urologist. If not, then the plan is to collect urine cytology at the time of surgery and make an outpatient referral. She is not in favor of the option to reschedule surgery. She had arranged for a referral through her primary care physician by her post op follow up on 07/10/2017. History of anxiety state [id number] F41.9 She has anxiety before surgeries and requests a Valium preop. I will add a request to anesthesia for sedation as soon as possible on the morning of surgery. Long-term drug therapy [id number] Z79.899 She should stop taking NSAIDs for one week before surgery. Health Concerns Section Related Observation LastModified by Organization Detai ls LastModified Time None Recorded Concern Status LastModified by Organization Details LastModified Time None Recorded Advance Directives Directive N: Payers Insurance Date Sequence Insurance Name Policy Number Policy Estrada Covered Member ID Estrada Member ID Guarantor Name 04/21/2017 1 [facility] Imelda Gloriaashliesteve [id number] Imelda Gloriaashliesteve 12/09/2018 1 [facility] [employer] () Imelda Gloriakiki [id number] Imelda Gloriaashliesteve 05/29/2017 1 [employer] - [employer] Robert Gloriakiki [id number] Imelda Ortiz Notes Date Note Type Note Provider Name and Address Organization Details Recorded Time 8 text/html Pelvic Floor DysfunctionReported by PatientPelvic Floor Distress Inventory (PFDI-20)For prolapse distress inventory (popdi-6), patient reportsabdominal pressure or fullness: 3/4,pelvic pressure: 3/4,bulging from vagina: 4/4,splinting to pass stool: 2/4, andincomplete bladder emptyin/4. For agkj-qptlmj-gmss distress inventory (cradi-8), patient reportsstraining with bowel movements: 2/4,incontinence of soft stools: 3/4,incontinence of flatus: 4/4, andfecal urgency: 2/4. For urinary distress inventory (yane-6), patient reportsurge incontinence: 2/4,stress incontinence: 4/4,small amounts of urine loss: 3/4, andpost-void fullness: 4/4. Sexual Function QuestionnaireReported by PatientProlapse and Incontinence Sexual Questionnaire (PISQ-12)For sexuality over past six months, patient reportssexual desire: 2/5,orgasm: 1/5,excited: 1/5,satisfied: 1/5,pain during intercourse: 5/5,incontinence with sexual activity: 5/5,fear incontinence with sexual activity: 5/5,vaginal bulgin/5,negative emotions: 5/5,partner erectile dysfunction: 1/5,partner premature ejaculation: 5/5, andorgasmic intensity: __/5. Pelvic Organ ProlapseReported by Patient Tom Crouch MD [address], [place], [address], [facility] 04/10/2017 16:08:52 8 text/html Incontinence Follow UpReported by PatientGenitourinary SymptomsFor urinary, patient reportsstress incontinence: 2/4but reportspain during urination (dysuria): 0/4,urgency: 0/4,post-void fullness: 0/4,urge incontinence: 0/4,urinary frequency: 4 hours between urinations, andnocturia: no times during the night.Gastrointestinal SymptomsFor anal incontinence, patient reportsfecal incontinence: 2/4andflatal incontinence: 4/4. Tom Crouch MD [address], [place], [address], [facility] 05/29/2017 15:57:21 8 text/html Post-OpReported by Patient Incontinence Follow UpReported by PatientGenitourinary SymptomsFor urinary, patient reportspain during urination (dysuria): 0/4,urgency: 0/4,post-void fullness: 0/4,stress incontinence: 0/4,urge incontinence: 0/4,urinary frequency: 3 hours between urinations, andnocturia: no times during the night.Gastrointestinal SymptomsFor anal incontinence, patient reportsflatal incontinence: 3/4but reportsfecal incontinence: 0/4. Tom Crouch MD [address], [place], [address], [facility] 06/26/2017 09:45:10 8 text/html Post-OpReported by Patient Incontinence Follow UpReported by PatientGenitourinary SymptomsFor urinary, patient reportspain during urination (dysuria): 0/4,urgency: 0/4,post-void fullness: 0/4,stress incontinence: 0/4,urge incontinence: 0/4,urinary frequency: 3 hours between urinations, andnocturia: no times during the night.Gastrointestinal SymptomsFor anal incontinence, patient reportsfecal incontinence: 0/4andflatal incontinence: 0/4. Tom Crouch MD [address], [place], [address], [facility] 07/10/2017 14:32:03 8 text/html Incontinence Follow UpReported by PatientGenitourinary SymptomsFor urinary, patient reportsstress incontinence: 1/4but reportspain during urination (dysuria): 0/4,urgency: 0/4,post-void fullness: 0/4,urge incontinence: 0/4,urinary frequency: 4 hours between urinations, andnocturia: no times during the night.Gastrointestinal SymptomsFor anal incontinence, patient reportsfecal incontinence: 1/4andflatal incontinence: 4/4. Tom Crouch MD [address], [place], [address], [facility] 09/17/2017 16:09:34 OBGyn Episode No OBEpisode recorded.
--- OUTSIDE RECORDS SUMMARY | 2025-03-01 16:14 | XMS_ITS | Clinical Summary ---
Author Organization [facility] Phys[facility] [address] [place] [id number] Care Team Providers Care Trim And Burr Operator Name Role Phone Jerrod Cameron MD Primary Care Provider [phone] Allergies Active Allergy Reactions Criticality Noted Date Comments Adhesive Rash Medium 05/29/2017 Glue on the adhesive Adhesive Tape-Silicones Other (See comments) Low 09/25/2017 made skin come off steristrips Beta-Blockers (Beta-Adrenergic Blocking Agts) Other (See comments) High 03/31/2021 Contraindicated while receiving allergy immunotherapy. Grass Pollen Hives,Itching,Swelli ng Medium 02/15/2020 Grass Pollen-Red Top, Standard Hives,Itching,Swelli ng Medium 02/15/2020 Bazfsdx-Lhc-Ktu Reductase Inhibitors Other (See comments) Low 12/17/2023 Tree And Shrub Pollen Hives Medium 01/03/2021 Venom-Honey Bee Swelling High 09/25/2017 [place] Pollen Hives,Itching,Swelli ng Medium 02/15/2020 Medications venlafaxine [...] 1 tablet (75 mcg total) by mouth mercury cell cleaner before breakfast Active fluticasone propionate (FLONASE) 50 [...] left 1st metacarpal. 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 Considering IV anbiotic as indicated. 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 Regular astigmatism 01/08/2024 Rhinitis 01/08/2024 Urethral [...] History Medical History Date Comments Diabetes mellitus diet controlle d Hypertension Allergic rhinitis Depression Motion sickness Hyperlipidemia [...] materials from doctor or pharmacy Rarely 01/07/2024 [facility] Utilities Answer Date Recorded In the past [...] often do you attend chur ch or anglican services? More than 4 times per year 12/25/2023 Do you belong to any clubs o r organizations such as judaism groups, unions, fraternal or athletic groups, or [...] any time in the past 12 m [facility], were you homeless or living in a care home (including now)? No 12/25/2023 Personal Safety Answer Date Recorded Have you ever been in or are you currently in a harmful physical or emotional relationship or is someone making you feel afraid or unsafe? 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 Gender Identity Not on file Sexual Orientation [...] Tdap) 03/19/203411/2024 Medical Devices Implanted Type Area Practice Support Specialist Device Identifier Shelf Expiration Date Model / Serial / Lot [employer]uy [employer] Attune Fb Tib Base Sz 4 Por [id number] - [id number] Implanted:Qty: 1 on 12/24/2023 by Jackson Nixon Jr., MD at [facility] Left: Knee [employer] [id number] 10/08/2033 [id number] / / [employer] Attune 7mm Cruciate Retaining Fix Bearing Knee 6 Insert Tibial [id number] - [id number] Implanted:Qty: 1 on 12/24/2023 by Jackson Nixon Jr., MD at [facility] Left: Knee [employer] [id number] 08/08/2026 [id number] / / [id number] [employer] Attune Cruciate Retain Cementless Knee Left 6 Narrow Component [id number] - [id number] Implanted:Qty: 1 on 12/24/2023 by Jackson Nixon Jr., MD at [facility] Left: Knee [employer] [id number] 02/08/2032 [id number] / / [id number] Procedures Procedure Name Priority Date/Time Associated Diagnosis [...] BLOOD ORDERABLE S Final Result M[facility]AL[facility] PINEDA [address] Department [place] [address] * (ABNORMAL) Hemoglobin A1c (12/17/2023 11:43 AM CDT) Hgb A1C 6.2(H) 4.0 - 5.6 % Estimated Average Glucose 131 mg/dL MORALES PINEDA Comment: The ADA recommends reporting an estimated Average Glucose (eAG) with all Hemoglobin A1c results using the equation derived from a study of 507 normal and diabetic adults. Minority populations were underrepresented and children were not included. (Diabetes Care 31:2560-5823, 2008). The eAG is not equivalent to a fasting glucose. Blood 12/17/2023 11:4 3 AM CDT 12/17/2023 12:01 PM CDT us Lorelei Simmons [employer] LAB BLOOD ORDERABLES Final Res ult MORALES [address] [address] Department [place] [address] from Last 3 Months or Most Recently Relevant to Health Maintenance Insurance [facility] Advance Directives For more information, please contact: [phone] * Full Code (Latest Code Status on File) Date Activated Date Inactivated Comments 12/24/2023 12:05 PM 12/26/2023 9:18 PM Care Teams Trim And Burr Operator Relationship Specialty Start Date End Date Jerrod Cameron MD [address] [address] PCP - General Family Medicine 06/24/23
== END 2025-03-01 14:22 | disposition home or self-care (01) ==
LOC: ANHCARD 14:24
PROVIDERS: PCP Nurse Practitioner Family; Visit Provider Nurse Practitioner Family
DX: R00.2 Palpitations (principal); I49.9 Cardiac arrhythmia, unspecified; R94.31 Abnormal electrocardiogram [ECG] [EKG]
CPT/HCPCS: 93005